=== PATIENT | male | born 1950 | race Caucasian/White ===

== ENCOUNTER 2017-01-24 14:28 | Inpatient (IN) ==
--- NOTE | 2017-01-24 21:04 | Internal Med History&Physical ---
<Eric Reza - Last Filed: 01/25/17 03:18> Date of Encounter: 01/25/17 Time of Encounter: 21:04 Assessment and Plan (1) Hematoma Current visit: No Status: Acute Ultrasound performed at [place] - Complex cystic mass measuring at least 10.5 cm x 10.0 cm x 4.0 cm in the anterior right thigh at the area of concern. There is a suspected fluid- hematocrit level suggestive of hematoma. The mass is not definitely localized to the subcutaneous tissues or musculature. TTP on exam, firm, non-pulsatile Increasing in size to roughly 10cm by 16cm Vascular consulted will followup tomorrow ABIs ordered CT right LE ordered Holding anti-coags - history of coumadin use d/t previous DVT, INR 2.6 today. Bed rest Pain control (2) Anemia associated with acute blood loss Current visit: Yes Status: Acute Hgb 5.5 at [place]. Transfused 2 units PRBCs. Trended up to 7.0 and now down to 6.7 Type and Screen Ordered IVF and 2 more units of PRBCs Serial H&H Vitals signs stable with mild tachy HR 104 - will monitor for improvement with transfusion and IVF replacement See above (3) GERD (gastroesophageal reflux disease) Current visit: Yes Status: Chronic restarted home PPI. Well controlled at this time. Qualifiers: Esophagitis presence: without esophagitis Qualified Code(s): K21.9 - Gastro -esophageal reflux disease without esophagitis (4) HTN (hypertension) Current visit: No Status: Chronic BP 129/80 at this time. Restarting Coreg. Qualifiers: Hypertension type: essential hypertension Qualified Code(s): I10 - Essential (primary) hypertension (5) Lupus Current visit: Yes Status: Chronic Taking Medrol and Plaqueneil. Restarted meds. Qualifiers: Lupus erythematosus form: unspecified Qualified Code(s): L93.0 - Discoid lupus erythematosus (6) CKD (chronic kidney disease) Current visit: No Status: Chronic Cr 1.33. Started IVF @ 125. Rechecking tomorrow. Qualifiers: Chronic kidney disease stage: stage 3 (moderate) Qualified Code(s): N18.3 - Chronic kidney disease, stage 3 (moderate) (7) Constipation Current visit: No Status: Chronic Last known bowel movement 2 days prior Start on bowel regimen Encouraged water intake Qualifiers: Constipation type: unspecified constipation type Qualified Code(s): K59.00 - Constipation, unspecified (8) Hyperkalemia Current visit: Yes Status: Acute K up to 5.3 Given Kayexalate Rechecking tomorrow Internal Medicine - H&P: HPI Chief complaint: anemia, leg pain Admitted From: Hospital to Hospital Transfer Plans for Post Hospital Care: Transfer Inp Rehab Fac History of present illness: Mr. Pichardo is a very pleasant 66 year old male with a past medical history of HLD , HTN, PAD, GERD, CKD, DVT, Lupus, anxiety and depression who presents to the [facility] from [place] with a chief complaint of right leg pain and anemia. He was recently admitted to [facility] for inpatient rehabilitation and starting Friday, he noticed swelling and pain in his right anterior hip region. No ecchymosis. XR hip neg. Ultrasound suggestive of large hematoma. 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 He was subsequently fell on his right side where they conducted the procedure and was after evaluated for possible fracture, he was found to have "internal bleeding" and sent to [facility] for further management. During his stay, they amputated his left big toe and right 5th toe and was sent for rehab in [place] due deconditioning and lack of weight bearing. Labs at [place] demonstrate Hgb 6.7 and Cr 1.33. Hgb previously was 5.5 and was given 2 units PRBC. Vital signs stable. EKG unremarkable. On evaluation, he denies any tobacco or EtOH abuse. He is taking Warfarin for history of DVT but was discontinued prior to transfer. Denies any CP, SOB, lighheadedness, palpitations, hematochezia or melana. We will admit patient to for further workup and management. Past Med Surg Social Fam HX - Past Medical History Medical history: arthritis, DVT, GERD, hyperlipidemia, hypertension, kidney stones, renal disease, other Psychiatric history: anxiety - Past Surgical History Surgical History: other - Social History Smoking Status: Never smoker Smokeless Tobacco Status: No Alcohol use: none Drug use: none - Family History Mother Living Status: Age at : 81 Cause of : Demantia, old age Hx Family Neurologic Disorders: Yes Father Living Status: Age at : 82 Cause of : Respiratory failure Hx Family Cardiac Disorders: Yes (Hypertension) Hx Family Respiratory Disorders: Yes (Aspestis) Internal Medicine - H&P: Meds Acetaminophen [Tylenol] 650 mg PO Q6HR PRN 05/15/16 [History] Ascorbic Acid [C-1000] 1,000 mg PO DAILY 05/15/16 [History] Calcitriol [Rocaltrol] 0.25 mcg PO HS 05/15/16 [History] Cyclobenzaprine [Flexeril] 5 mg PO TID PRN 05/15/16 [History] Ferrous Sulfate [Iron] 325 mg PO BIDWM 05/15/16 [History] Hydroxychloroquine [Plaquenuil] 200 mg PO BID 05/15/16 [History] Metoprolol XL (24 HR) Succ [Toprol XL] 25 mg PO DAILY 05/15/16 [History] OxyCODONE Immed Rel [Roxicodone 5 MG] 5 mg PO Q4H PRN 05/15/16 [History] Paroxetine HCl [Paxil] 20 mg PO DAILY 05/15/16 [History] Sennosides/Docusate Sodium [Senna-S Tablet] 1 tab PO HS 05/15/16 [History] methylPREDNISolone [Medrol] 4 mg PO BID 05/15/16 [History] Aspirin 81 mg PO DAILY 01/17/17 [History] Pantoprazole Sodium [Protonix] 40 mg PO DAILY 01/17/17 [History] 3 Allergy/AdvReac Type Severity Reaction Status Date / Time carvedilol [From Coreg] Allergy Gastrointestinal Verified 01/17/17 01:17 Upset diphenhydramine Allergy Chills Verified 01/17/17 01:17 [From Benadryl] All Systems PM: A 10-system review of systems was performed and is negative for pertinent findings except as documented above in the HPI. - Constitutional Constitutional: no fever(s), no weight loss - Cardiovascular Cardiovascular ROS IM: as per HPI, no chest pain, no dyspnea, no palpitations - Respiratory Respiratory: no hemoptysis - Gastrointestinal Gastrointestinal: constipation, no abdominal pain - Genitourinary Genitourinary ROS male: no dysuria - Musculoskeletal Musculoskeletal ROS IM: arthralgias - Integumentary Integumentary IM: as per HPI - Neurological Neurological ROS: no headache(s) - Psychiatric Psychiatric: anxiety, depression - Constitutional Vitals: Temp Pulse Resp BP Pulse Ox 97.7 F 104 14 129/80 98 01/24/17 18:42 01/24/17 18:42 01/24/17 18:42 01/24/17 18:42 01/24/17 18:42 General appearance: Present: cooperative, A&O X 3, no acute distress - Head Head exam: Present: atraumatic, normocephalic - Eye Eye exam: Present: EOMI, conjuntiva pink, sclera anicteric - ENT ENT exam: Present: mucous membranes dry - Neck Neck exam general surgery: Present: supple, trachea midline - Respiratory Respiratory exam: Present: CTAB. Absent: rales, rhonchi, wheezes - Cardiovascular Cardiovascular exam: Present: RRR, +S1, +S2 - GI/Abdominal GI/Abdominal exam: Present: normal bowel sounds, soft. Absent: tenderness - Rectal Rectal exam: Present: deferred - Extremities Exam Extremities exam: Present: tenderness (right anterior thigh, large hematoma present about right anterior hip 10cm x16cm) - Neurological Exam Neurological exam: Present: alert, oriented X3, no focal deficits - Psychiatric Psychiatric exam: Present: normal affect, normal mood - Skin Skin exam: Present: abrasion (bilateral knees), intact (diffuse chronic ecchymosis about forearms and b/l LE ) Internal Med - H&P Results - Labs CBC & Chem 7: 01/25/17 00:48 01/24/17 22:48 <Odilon Antonio K - Last Filed: 01/25/17 04:59> Date of Encounter: 01/24/17 Internal Medicine - H&P: HPI History of present illness: Mr. Pichardo is a 66 year old male All Systems PM: A 10-system review of systems was performed and is negative for pertinent findings except as documented above in the HPI. - Constitutional Vitals: Temp Pulse Resp BP Pulse Ox 99.5 F 104 16 134/86 98 01/25/17 02:39 01/25/17 02:39 01/25/17 02:39 01/25/17 02:39 01/25/17 02:39 Internal Med - H&P Results - Labs CBC & Chem 7: 12/09/17 00:48 01/24/17 22:48 Labs: Short CBC 01/24/17 01/25/17 Range/Units 22:48 00:48 WBC 9.3 (4.3-11.1) K/mcL Hgb 6.1 L 5.9 L* (12.9-16.9) g/dL Hct 20.1 L 18.6 L (37.5-50.1) % Plt Count 389 (140-400) K/mcL Neutrophils # 7.1 (1.6-8.9) K/mcL BMP 01/24/17 22:48 Sodium 135 L Potassium 5.3 H Chloride 106 Carbon Dioxide 22 BUN 45 H Creatinine 1.60 H Glucose 109 H Calcium 8.3 L - Impressions ITS Impressions Lower Extremity CT 01/24/17 23:12 IMPRESSION: 1. No fracture or malalignment. 2. Large anterior compartment hematoma. Partially imaged is a hematoma in the right iliacus muscle. D/ / Esteban Reyes MD / Esteban Reyes MD Interpreting Provider: Esteban Reyes MD - Attending Attestation I have personally and placing the patient and examined the patient./Dictation / Nurse Practioner findings and plan discussed. Chest clear heart S1 and S2 rate rhythm regular abdomen soft nontender no organomegaly. Right thigh shows hematoma which is quite tender. Hemoglobin has dropped down to 5.9 therefore will give couple of units of PRBC. Vascular surgery consulted.
[2017-01-24] MEDS ORDERED: *HR* Morphine 2 MG/ML SYRINGE IVP PRN (22:01)
[2017-01-24] MEDS ORDERED: Naloxone 0.4 MG/ML INJ IVP PRN (22:01)
[2017-01-24] MEDS ORDERED: 0.9 % Sodium Chloride 1,000 ML IVC SCH (22:15)
[2017-01-24 23:03] LABS: Basophils % 0.2 %; Eosinophils # 0.1 K/mcL (0.0-0.6); Eosinophils % 0.9 %; Hematocrit 20.1 % (37.5-50.1); Hemoglobin 6.1 g/dL (12.9-16.9); Immature Granulocytes % 1.7 % (0-4); Lymphocytes % 10.6 %; Mean Corpuscular HGB Conc 30.3 g/dL (31.6-35.5); Mean Corpuscular Hemoglobin 28.6 pg (28.0-33.3); Mean Corpuscular Volume 94.4 fL (83.0-100.0); Mean Platelet Volume 9.2 fL (9.4-12.4); Monocytes % 10.5 %; Neutrophils # 7.1 K/mcL (1.6-8.9); Nucleated Red Blood Cells 0.4 /100 WBC (0); Platelet Count 389 K/mcL (140-400); Red Blood Count 2.13 M/mcL (4.19-5.50); Red Cell Distribution Width 17.7 % (11.5-14.5); Segmented Neutrophils % 76.1 %
[2017-01-24 23:18] LABS: Calcium 8.3 mg/dL (8.6-10.8); Potassium 5.3 mEq/L (3.5-4.5)
[2017-01-25 01:08] LABS: Hematocrit 18.6 % (37.5-50.1)
[2017-01-25 01:17] LABS: Hemoglobin 5.9 g/dL (12.9-16.9)
[2017-01-25] MEDS ORDERED: 0.9 % Sodium Chloride 500 ML ONE ×2 (01:56→06:01)
[2017-01-25] MEDS ORDERED: Ondansetron 4 MG/2 ML VIAL IVP PRN (03:49)
[2017-01-25] MEDS: Acetaminophen 325 MG TABLET PO PRN ×2 (04:14→17:26)
[2017-01-25] MEDS: methylPREDNISolone 4 MG TABLET PO SCH ×2 (09:09→22:17)
[2017-01-25] MEDS: Metoprolol XL (24 HR) Succ 25 MG TAB.ER.24H PO SCH (09:14)
[2017-01-25] MEDS ORDERED: *HR* HYDROmorphone 2 MG/ML SYRINGE IVP PRN (10:17)
[2017-01-25 10:27] LABS: Calcium 7.8 mg/dL (8.6-10.8)
[2017-01-25 10:29] LABS: Potassium 4.8 mEq/L (3.5-4.5)
[2017-01-25] MEDS ORDERED: 0.9 % Sodium Chloride 250 ML ONE ×2 (10:41→16:25)
[2017-01-25 10:58] LABS: Hematocrit 27.1 % (37.5-50.1)
--- NOTE | 2017-01-25 11:47 | Internal Med Progress Note ---
Date of Encounter: 01/25/17 Time of Encounter: 09:00 - Assessment and plan (1) Pulmonary embolism Current Visit: Yes Status: Acute Assessment and plan: Patient has a history of pulmonary embolism since this April. Probably due to back surgery and immobilization. Patient was on Coumadin since then. - We will hold the Coumadin because of hematoma. - We will consult oncology hematology for further management. Qualifiers: Pulmonary embolism type: other Chronicity: chronic Acute cor pulmonale presence: without acute cor pulmonale Qualified Code(s): I27.82 - Chronic pulmonary embolism (2) DVT prophylaxis Current Visit: Yes Status: Acute Assessment and plan: Patient was on Coumadin. Coumadin is on hold now because of hematoma. No further anticoagulations because of acute hematoma on right thigh. EPCD (3) HTN (hypertension) Current Visit: No Status: Chronic Assessment and plan: Continue home medications Qualifiers: Hypertension type: essential hypertension Qualified Code(s): I10 - Essential (primary) hypertension (4) CKD (chronic kidney disease) Current Visit: No Status: Chronic Assessment and plan: Patient's creatinine level is at about baseline Qualifiers: Chronic kidney disease stage: stage 3 (moderate) Qualified Code(s): N18.3 - Chronic kidney disease, stage 3 (moderate) (5) Anemia Current Visit: No Status: Acute Assessment and plan: Patient has a chronic anemia, probably due to CKD. His baseline hemoglobin level is at around 8.0 Qualifiers: Anemia type: due to chronic kidney disease Chronic kidney disease stage: stage 3 (moderate) Qualified Code(s): N18.3 - Chronic kidney disease, stage 3 (moderate); D63.1 - Anemia in chronic kidney disease; D63.1 - Anemia in chronic kidney disease (6) Hematoma Current Visit: No Status: Acute Assessment and plan: Patient has a recent fall and he is on Coumadin. Right thigh hematoma with pain. Distal pulse is good at this point. We will continue hold Coumadin/ aspirin/Plavix. Give patient 2 units of FFP. Continue pain management. Consult orthopedic, plan for bedside aspiration. (7) Lupus Current Visit: Yes Status: Chronic Assessment and plan: Patient is on chronic steroid use. Will continue home dose at this point. May need stress dose if patient undergoes surgery or have significant disease. Qualifiers: Lupus erythematosus form: unspecified Qualified Code(s): L93.0 - Discoid lupus erythematosus (8) Anemia associated with acute blood loss Current Visit: Yes Status: Acute Assessment and plan: Hemoglobin dropped to 5-6, probably due to large hematoma. Patient denies black stool or coffee ground emesis. - Patient was given 2 units of PRBC transfusion. Hemoglobin reached to 9.0 now. - Continue closely monitor vitals and hemoglobin level. (9) Hyperkalemia Current Visit: Yes Status: Acute Assessment and plan: Improved after Kayexalate. (10) PVD (peripheral vascular disease) Current Visit: Yes Status: Acute Assessment and plan: Patient has hx of PVD. Vascular surgery consult was called. - Time Spent With Patient 25 - 35 minutes - Subjective Interval history: Patient was seen and examined. Complained of right thigh pain, need by mouth and IV pain medications. Vital signs stable. Both side popliteal artery pulse is good on palpation. We will consult vascular surgeon, orthopedic, and oncology for patient's PVD, hematoma, and PE management. - Constitutional Vitals: Temp Pulse Resp BP Pulse Ox 98.6 F 96 14 146/75 100 01/25/17 10:48 01/25/17 10:48 01/25/17 10:48 01/25/17 10:48 01/25/17 10:48 General appearance: Present: cooperative, A&O X 3, no acute distress - Head Head exam: Present: atraumatic, normocephalic - Eye Eye exam: Present: PERRL, conjuntiva pink, sclera anicteric Pupils: Present: PERRL - Neck Neck exam general surgery: Present: supple, trachea midline. Absent: lymphadenopathy - Respiratory Respiratory exam: Present: CTAB. Absent: accessory muscle use, rales, rhonchi, wheezes - Cardiovascular Cardiovascular exam: Present: RRR, +S1, +S2. Absent: diastolic murmur, gallop, rubs, systolic murmur - GI/Abdominal GI/Abdominal exam: Present: normal bowel sounds, soft, no peritoneal signs. Absent: distended, tenderness - Extremities Exam Extremities exam: Present: warm, radial pulses palpable and symmetrical. Absent : calf tenderness, cyanotic, pedal edema Additional comments: Right thigh swelling, hard on touch. Right popliteal pulse is good. - Neurological Exam Neurological exam: Present: CN II-XII intact, oriented X3, no focal deficits. Absent: pronater drift, facial droop, speech deficit - Skin Skin exam: Present: dry, intact Internal Medicine: Result - Labs CBC & Chem 7: 01/25/17 10:40 01/25/17 10:08 Labs: Short CBC 01/24/17 01/25/17 01/25/17 Range/Units 22:48 00:48 10:40 WBC 9.3 (4.3-11.1) K/mcL Hgb 6.1 L 5.9 L* 9.0 L D (12.9-16.9) g/dL Hct 20.1 L 18.6 L 27.1 L (37.5-50.1) % Plt Count 389 (140-400) K/mcL Neutrophils # 7.1 (1.6-8.9) K/mcL BMP 01/24/17 01/25/17 22:48 10:08 Sodium 135 L 137 Potassium 5.3 H 4.8 H Chloride 106 109 Carbon Dioxide 22 18 L BUN 45 H 45 H Creatinine 1.60 H 1.48 H Glucose 109 H 85 Calcium 8.3 L 7.8 L - Impressions Impressions Lower Extremity CT 01/24/17 23:12 IMPRESSION: 1. No fracture or malalignment. 2. Large anterior compartment hematoma. Partially imaged is a hematoma in the right iliacus muscle. D/ / Esteban Reyes MD / Esteban Reyes MD Interpreting Provider: Esteban Reyes MD Consult Discharge Plan - Plan Referrals: Randy Tse MD [Primary Care Provider] -
[2017-01-25] MEDS: *HR* OxyCODONE/APAP 5/325 TABLET PO PRN ×2 (12:00→18:50)
--- NOTE | 2017-01-25 12:01 | Orthopedic Consult Note ---
Date of Encounter: 01/25/17 Time of Encounter: 11:58 Assessment and Plan (1) Thigh hematoma Current Visit: Yes Status: Acute This patient is a 66-year-old male with a large right thigh hematoma with associated pain, particularly with movements. He does not have compartment syndrome. Etiology is likely related to being on warfarin. My recommendation at this point is to reverse the INR. Regarding the hematoma itself treatment options include observation versus aspiration versus surgical drainage. Given the symptomatic nature of the hematoma it would be reasonable to attempt aspiration or even drained surgically. Given his elevated INR and low hemoglobin at this point I am hesitant to recommend surgical decompression for comfort purposes only. I will attempt bedside aspiration. After informed consent was obtained and a timeout to identify the correct patient, correct procedure, the correct side I did use an 18-gauge spinal needle and introduced it into the anterior compartment and attempted to aspirate the hematoma, however I was unable to get more than 2 mL of bloody material. It would be reasonable to consult interventional radiology for placement of a larger drain for the hematoma. Should this not be successful or his INR be successfully reversed and his hemoglobin at a reasonable level we could proceed with surgical drainage of the hematoma. I will follow him clinically with you in the hospital. Qualifiers: Qualified Code(s): S70.11XA - Contusion of right thigh, initial encounter History of Present Illness HPI: Mr. Pichardo is a 66 year old male admitted to the hospitalist for a right thigh hematoma. He was recently admitted to a rehabilitation facility after having his right small toe amputated for infection. During recovery he started to notice right thigh swelling associate it with pain beginning 6 days ago and this has plateaued within the last few days. He is taking Coumadin and has an INR of about 2.6. Orthotics was consulted related to the right thigh hematoma. My evaluation he complains of isolated pain to the right thigh anteriorly associated with movements. He denies any numbness or tingling to the right lower extremity. When he is at rest and not moving the pain is relatively controlled and again is worsened by movements and getting on and off a bed kelly. No new injuries or complaints otherwise. No other associated signs or symptoms or modifying factors. Past Med Surg Social Fam HX - Past Medical History Medical history: arthritis, DVT, GERD, hyperlipidemia, hypertension, kidney stones, renal disease, other Psychiatric history: anxiety - Past Surgical History Surgical History: other - Social History Smoking Status: Never smoker Smokeless Tobacco Status: No Alcohol use: none Drug use: none - Family History Mother Living Status: Age at : 81 Cause of : Demantia, old age Hx Family Neurologic Disorders: Yes Father Living Status: Age at : 82 Cause of : Respiratory failure Hx Family Cardiac Disorders: Yes (Hypertension) Hx Family Respiratory Disorders: Yes (Aspestis) Medications and Allergies Acetaminophen [Tylenol] 650 mg PO Q6HR PRN 05/15/16 [History] Ascorbic Acid [C-1000] 1,000 mg PO DAILY 05/15/16 [History] Calcitriol [Rocaltrol] 0.25 mcg PO HS 05/15/16 [History] Cyclobenzaprine [Flexeril] 5 mg PO TID PRN 05/15/16 [History] Ferrous Sulfate [Iron] 325 mg PO BIDWM 05/15/16 [History] Hydroxychloroquine [Plaquenuil] 200 mg PO BID 05/15/16 [History] Metoprolol XL (24 HR) Succ [Toprol XL] 25 mg PO DAILY 05/15/16 [History] OxyCODONE Immed Rel [Roxicodone 5 MG] 5 mg PO Q4H PRN 05/15/16 [History] Paroxetine HCl [Paxil] 20 mg PO DAILY 05/15/16 [History] Sennosides/Docusate Sodium [Senna-S Tablet] 1 tab PO HS 05/15/16 [History] methylPREDNISolone [Medrol] 4 mg PO BID 05/15/16 [History] Aspirin 81 mg PO DAILY 01/17/17 [History] Pantoprazole Sodium [Protonix] 40 mg PO DAILY 01/17/17 [History] Alendronate Sodium 70 mg PO QWEEK 01/25/17 [History] Celecoxib [Celebrex] 200 mg PO BID 01/25/17 [History] Clopidogrel [Plavix] 75 mg PO DAILY 01/25/17 [History] LORazepam [Ativan] 0.5 mg PO BID 01/25/17 [History] Warfarin [Coumadin] 2 mg PO AD 01/25/17 [History] 3 Allergy/AdvReac Type Severity Reaction Status Date / Time carvedilol [From Coreg] Allergy Gastrointestinal Verified 01/17/17 01:17 Upset diphenhydramine Allergy Chills Verified 01/17/17 01:17 [From Benadryl] All Systems Reviewed: A 10-system review of systems was performed and is negative for pertinent findings except as documented above in the HPI. Physical Exam - Constitutional Vitals: Temp Pulse Resp BP Pulse Ox 98.6 F 96 14 146/75 100 01/25/17 10:48 01/25/17 10:48 01/25/17 10:48 01/25/17 10:48 01/25/17 10:48 CONSTITUTIONAL -Vitals reviewed -The patient is well developed, well nourished, well groomed PSYCHIATRIC -Fully alert and oriented -Pleasant mood RIGHT UPPER EXTREMITY Inspection shows right anterior thigh swelling compared to the contralateral side Tenderness over the area of focal anterior swelling No overlying skin changes or redness or concern for infection I can gently passively range the knee with flexion and extension without significant worsening of his pain. The thigh is otherwise soft. He can dorsiflex and plantarflex the ankle and toes and the foot is sensate and well-perfused The incision on the lateral aspect of the foot is healing well. Diagnostic Imaging: I did personally review and interpret the CT scan of the right thigh which does show a large anterior thigh hematoma Results - Labs Result Diagrams: 01/25/17 10:40 01/25/17 10:08 Labs: Abnormal lab results RBC 2.13 M/mcL (4.19-5.50) L 01/24/17 22:48 Hgb 9.0 g/dL (12.9-16.9) L D 01/25/17 10:40 Hct 27.1 % (37.5-50.1) L 01/25/17 10:40 MCHC 30.3 g/dL (31.6-35.5) L 01/24/17 22:48 RDW 17.7 % (11.5-14.5) H 01/24/17 22:48 MPV 9.2 fL (9.4-12.4) L 01/24/17 22:48 Nucleated RBCs/100 WBC 0.4 /100 WBC (0) H 01/24/17 22:48 Potassium 4.8 mEq/L (3.5-4.5) H 01/25/17 10:08 Carbon Dioxide 18 mEq/L (19-29) L 01/25/17 10:08 BUN 45 mg/dL (8-26) H 01/25/17 10:08 Creatinine 1.48 mg/dL (0.72-1.25) H 01/25/17 10:08 Est GFR ( Amer) 58 (> 60) L 01/25/17 10:08 Est GFR (Non-Af Amer) 48 (> 60) L 01/25/17 10:08 BUN/Creatinine Ratio 30 (6-26) H 01/25/17 10:08 Calcium 7.8 mg/dL (8.6-10.8) L 01/25/17 10:08 H & H 01/24/17 01/25/17 01/25/17 Range/Units 22:48 00:48 10:40 Hgb 6.1 L 5.9 L* 9.0 L D (12.9-16.9) g/dL Hct 20.1 L 18.6 L 27.1 L (37.5-50.1) % All other labs normal. Consult Discharge Plan - Plan Referrals: Randy Tse MD [Primary Care Provider] -
--- NOTE | 2017-01-25 14:07 | Vascular/Endovasc Consult Note ---
Date of Encounter: 01/25/17 Time of Encounter: 14:03 Assessment and Plan (1) Anemia associated with acute blood loss Current Visit: Yes Status: Acute Transfusion and correction of coagulation profiles as per medical service. (2) PVD (peripheral vascular disease) Current Visit: Yes Status: Chronic Patient has chronic long-standing lower extremity vascular disease. This appears to be in the tibial circulation. By history he is status post left lower extremity intervention. Due to ongoing issues with bleeding and other medical concerns further vascular intervention at this time is inappropriate. Due to the wounds on the feet I would recommend podiatry consultation for evaluation and follow-up for wound healing. Patient will also require noninvasive testing once his medical status is improved and source of anemia clarified. He is not a candidate for intervention as this would require intraprocedure procedure anticoagulation and post procedure antiplatelet therapy for a minimum of 90 days. (3) Thigh hematoma Current Visit: Yes Status: Acute Patient has been seen by orthopedic surgery with attempted percutaneous aspiration and decompression. At this time patient does not have a compartment syndrome or have a limb threatening process. It would be reasonable to ask interventional radiology to attempt to drain this hematoma. I agree with correction of coagulation factors and transfusion. I do not recommend open surgical intervention at this time. I have reviewed the CT scan and do not see any obvious connection to the hematoma from the right femoral arterial system. Of note however the CT scan was performed without IV contrast due to renal considerations. As I do not recommend angiography for vascular surgery intervention the vascular surgery service will remain available if there are any further questions or concerns regarding this patient's care. Qualifiers: Encounter type: initial encounter Laterality: right Qualified Code(s): S70.11XA - Contusion of right thigh, initial encounter - History of Present Illness Consult date: 01/25/17 Consult reason: Right thigh hematoma Chief complaint: Right thigh hematoma History of present illness: Mr. Pichardo is a 66 year old male Who was admitted on transfer from [place] last night because of a right thigh hematoma and right thigh pain. The patient's history is rather complex and difficult to piece together. As best I can determine his issues began with chronic foot until infections. He was found to have some degree of vascular insufficiency though I do not have the angiogram report or noninvasive testing at the time of this dictation. He went on to have a angiogram at [facility] with apparent left lower extremity endovascular intervention via a right femoral puncture. The patient denies any complications associated with this procedure. He believes that CO2 was used as a contrast medium for some of this procedure if not all of the procedure. Following this he was judged to require amputation of the right fifth and the left first toe. He was then sent to the [facility] and had this procedure performed. From there he went to [place] for rehabilitation. Patient states that he did have a fall somewhere around [facility]. There was no immediate swelling but he noted about one week ago there were some irritation in the anterior thigh and then that evening and following day he noted a swelling. The swelling then slowly increased in size. He had more symptoms and was found to be significantly anemic and was transferred yesterday. Of note the patient has had ongoing anemia and has received multiple transfusions over the past few weeks. It is unclear at the time of this dictation as to the etiology of the patient's anemia. It should be noted that the patient was taking Coumadin on his physician 's recommendation. Again this is somewhat unclear but apparently he had had a right lower extremity DVT many years ago. Then in April of this year he had undergone spine surgery and a pulmonary embolus was discovered according to the patient. Again the details of this are not available to time of this dictation. He was then placed on anticoagulation and was told by his family physician that he would be on lifelong anticoagulation. Due to the anemia and the hematoma of course all anticoagulants and antiplatelets have been stopped. Other complicating factors for this patient include lupus with long-term steroid use and hypertension. Past Med Surg Social Fam HX - Past Medical History Medical history: arthritis, DVT, GERD, hyperlipidemia, hypertension, kidney stones, renal disease, other Psychiatric history: anxiety - Past Surgical History Surgical History: angioplasty/stent (Left lower extremity interventions performed in December 2016 at [place]), orthopedic, other (Spine surgery performed in April 2016) - Social History Smoking Status: Never smoker Smokeless Tobacco Status: No Alcohol use: none Drug use: none - Family History Mother Living Status: Age at : 81 Cause of : Demantia, old age Hx Family Neurologic Disorders: Yes Father Living Status: Age at : 82 Cause of : Respiratory failure Hx Family Cardiac Disorders: Yes (Hypertension) Hx Family Respiratory Disorders: Yes (Aspestis) Medications and Allergies Acetaminophen [Tylenol] 650 mg PO Q6HR PRN 05/15/16 [History] Ascorbic Acid [C-1000] 1,000 mg PO DAILY 05/15/16 [History] Calcitriol [Rocaltrol] 0.25 mcg PO HS 05/15/16 [History] Cyclobenzaprine [Flexeril] 5 mg PO TID PRN 05/15/16 [History] Ferrous Sulfate [Iron] 325 mg PO BIDWM 05/15/16 [History] Hydroxychloroquine [Plaquenuil] 200 mg PO BID 05/15/16 [History] Metoprolol XL (24 HR) Succ [Toprol XL] 25 mg PO DAILY 05/15/16 [History] OxyCODONE Immed Rel [Roxicodone 5 MG] 5 mg PO Q4H PRN 05/15/16 [History] Paroxetine HCl [Paxil] 20 mg PO DAILY 05/15/16 [History] Sennosides/Docusate Sodium [Senna-S Tablet] 1 tab PO HS 05/15/16 [History] methylPREDNISolone [Medrol] 4 mg PO BID 05/15/16 [History] Aspirin 81 mg PO DAILY 01/17/17 [History] Pantoprazole Sodium [Protonix] 40 mg PO DAILY 01/17/17 [History] Alendronate Sodium 70 mg PO QWEEK 01/25/17 [History] Celecoxib [Celebrex] 200 mg PO BID 01/25/17 [History] Clopidogrel [Plavix] 75 mg PO DAILY 01/25/17 [History] LORazepam [Ativan] 0.5 mg PO BID 01/25/17 [History] Warfarin [Coumadin] 2 mg PO AD 01/25/17 [History] 3 Allergy/AdvReac Type Severity Reaction Status Date / Time carvedilol [From Coreg] Allergy Gastrointestinal Verified 01/17/17 01:17 Upset diphenhydramine Allergy Chills Verified 01/17/17 01:17 [From Benadryl] All Systems Review: A 10-system review of systems was performed and is negative for pertinent findings except as documented above in the HPI. Exam Vital Signs, Last 4 Hours Temp Pulse Resp BP Pulse Ox 01/25/17 13:30 98.6 F 96 18 147/77 100 01/25/17 10:48 98.6 F 96 14 146/75 100 General: Present: Conversant, No Apparent Distress HEENT: Present: Atraumatic, Normocephaly, Trachea midline Neck: Absent: JVD Neuro: Present: Alert and responsive, Cranial nerves grossly intact, Motor nerves grossly intact, Sensory nerves grossly intact Abdomen: Present: Soft, Non-tender Vascular: Present: Capillary refill delayed, Pulse, absent (No palpable dorsalis pedis or posterior tibial pulse at the ankle), Pulse, normal (Palpable bilateral femoral and popliteal pulses), Other (Chronic discoloration of the forearms and lower extremities from what appears to be ecchymoses) Skin: Present: Wound/ulcer(s) (Patient is status post right fifth metatarsal amputation and status post left first toe amputation. He also has a hammertoe of the left second toe.) Musculoskeletal: Present: Other Consult Discharge Plan - Plan Referrals: Randy Tse MD [Primary Care Provider] -
--- NOTE | 2017-01-25 15:11 | Oncology Inp Consult Note ---
Date of Encounter: 01/25/17 Time of Encounter: 15:09 Assessment and Plan (1) Anemia Status: Acute Assessment and plan: His main and dictating back to April 2016 hemoglobin 9. I do not have previous values. Part of the anemia could be secondary to lupus. I will do a complete anemia workup. Current acute anemia secondary to bleeding and right thigh hematoma May need colonoscopy in the future as well and he was Hemoccult stool positive May 2069 Qualifiers: Anemia type: due to chronic kidney disease Chronic kidney disease stage: stage 3 (moderate) Qualified Code(s): N18.3 - Chronic kidney disease, stage 3 (moderate); D63.1 - Anemia in chronic kidney disease; D63.1 - Anemia in chronic kidney disease (2) Pulmonary embolism Status: Acute Assessment and plan: History of pulmonary embolism April 2016. Provoked after back surgery. His risk factor include lupus. Do a hypercoagulable workup Also check d-dimer. If d-dimer is elevated may consider CT angiogram chest to look for resolution of PE. May need to have hydration because of his renal insufficiency At this time I will stop anticoagulation. INR was only mildly elevated at 2.6 but he had a fall which caused a hematoma. Apparently he was also on Lovenox for the by history. Elequis is been approved for creatinine less than 1.5 at standard dose 5 mg 3 times a day. But if he does not have major clot I would consider 2.5 mg by mouth twice a day as an outpatient to minimize future venous thromboembolism. Qualifiers: Pulmonary embolism type: other Chronicity: chronic Acute cor pulmonale presence: without acute cor pulmonale Qualified Code(s): I27.82 - Chronic pulmonary embolism (3) Thigh hematoma Status: Acute Assessment and plan: Aggravated by fall. He was on Coumadin at that time and possibly Lovenox. He is getting plasma transfusions. He had blood transfusion and current hemoglobin 9. Orthopedics involved. We will hold anticoagulation until his hematoma improves Had a long discussion with him. He likes to get off all anticoagulation the future. But given his risk factors may need some anticoagulation in the future. Would Would discuss this further as an outpatient Qualifiers: Encounter type: initial encounter Laterality: right Qualified Code(s): S70.11XA - Contusion of right thigh, initial encounter - Data of Consult Requesting Physician: Gene Baker MD Primary Care Provider: Randy Tse MD - Consult Narrative Reason for consult: History of PE on anticoagulation. Right thigh hematoma History of present illness: Mr. Pichardo is a 66 year old male transferred from peripheral hospital with right thigh hematoma His presentation is complex and I will try to summarize it He had 2 back surgeries likely lumbar laminectomies on April 2016. He was diagnosed with pulmonary embolus some shortly after that during that hospitalization. Likely provoked from the surgery. He was discharged home on Coumadin. His INRs fluctuate the highest was around 4.5. Most of the time it has been around 2 or less. About 3 weeks ago around mid December 2016 he had a vascular procedure with stenting for peripheral arterial disease in the left lower extremity. He was told he had some arterial blockage in the right side but no intervention done. Just prior to that procedure he twisted his right knee and had a fall. He noticed swelling and hematoma right thigh which was present during the above procedure. But subsequently got worse. He also was given apparently Lovenox and I am not sure he received both Lovenox and Coumadin can currently are not He also have to have amputation of some of the toes in the right lower extremity which she claims is due to infection from rubbing against each other. Hemoglobin dropped to 5.5 in January 2017 and he received 2 units of packed RBC outside hospital in another 2 units here. Current hemoglobin 9. He was also Hemoccult tested positive the stools May 2016. He claims he had colonoscopy in past She denied diabetes. He has not smoked in more than 20 years. He has SLE and he follows up with the rheumatology. He is taking the Actonel and Celebrex and steroids as needed. His chronic kidney disease with creatinine around 1.5 or slightly below. Likely renal insufficiency secondary to lupus He has handled IV contrast fairly well in the past including the recent vascular procedures mentioned He was evaluated by Dr. Denny vascular surgery and no acute intervention recommended He is also evaluated by orthopedic. Closest aspiration of the hematoma attempted Currently he is off all anticoagulation Medical problems He denied previous history of blood clots prior to his pulmonary embolism around April 2016. He denied any DVT at that time and no family history of blood clots Past Med Surg Social Fam HX - Past Medical History Medical history: arthritis, DVT, GERD, hyperlipidemia, hypertension, kidney stones, renal disease, other Psychiatric history: anxiety - Past Surgical History Surgical History: angioplasty/stent (Left lower extremity interventions performed in December 2016 at [place]), orthopedic, other (Spine surgery performed in April 2016) - Social History Smoking Status: Never smoker Smokeless Tobacco Status: No Alcohol use: none Drug use: none - Family History Mother Living Status: Age at : 81 Cause of : Demantia, old age Hx Family Neurologic Disorders: Yes Father Living Status: Age at : 82 Cause of : Respiratory failure Hx Family Cardiac Disorders: Yes (Hypertension) Hx Family Respiratory Disorders: Yes (Aspestis) Medications and Allergies Acetaminophen [Tylenol] 650 mg PO Q6HR PRN 05/15/16 [History] Ascorbic Acid [C-1000] 1,000 mg PO DAILY 05/15/16 [History] Calcitriol [Rocaltrol] 0.25 mcg PO HS 05/15/16 [History] Cyclobenzaprine [Flexeril] 5 mg PO TID PRN 05/15/16 [History] Ferrous Sulfate [Iron] 325 mg PO BIDWM 05/15/16 [History] Hydroxychloroquine [Plaquenuil] 200 mg PO BID 05/15/16 [History] Metoprolol XL (24 HR) Succ [Toprol XL] 25 mg PO DAILY 05/15/16 [History] OxyCODONE Immed Rel [Roxicodone 5 MG] 5 mg PO Q4H PRN 05/15/16 [History] Paroxetine HCl [Paxil] 20 mg PO DAILY 05/15/16 [History] Sennosides/Docusate Sodium [Senna-S Tablet] 1 tab PO HS 05/15/16 [History] methylPREDNISolone [Medrol] 4 mg PO BID 05/15/16 [History] Aspirin 81 mg PO DAILY 01/17/17 [History] Pantoprazole Sodium [Protonix] 40 mg PO DAILY 01/17/17 [History] Alendronate Sodium 70 mg PO QWEEK 01/25/17 [History] Celecoxib [Celebrex] 200 mg PO BID 01/25/17 [History] Clopidogrel [Plavix] 75 mg PO DAILY 01/25/17 [History] LORazepam [Ativan] 0.5 mg PO BID 01/25/17 [History] Warfarin [Coumadin] 2 mg PO AD 01/25/17 [History] 3 Allergy/AdvReac Type Severity Reaction Status Date / Time carvedilol [From Coreg] Allergy Gastrointestinal Verified 01/17/17 01:17 Upset diphenhydramine Allergy Chills Verified 01/17/17 01:17 [From Benadryl] Review of systems: Some cramps in the right leg. No chest pain or shortness of breath. No fever chills. Oncology - Exam - Constitutional Vitals: Temp Pulse Resp BP Pulse Ox 98.5 F 96 18 148/96 100 01/25/17 13:51 01/25/17 13:30 01/25/17 13:51 01/25/17 13:51 01/25/17 13:51 Exam: Conscious alert and oriented Heart S1-S2 regular rate and rhythm Lungs clear both sites good air entry Abdomen soft also is present not tender Seen is conscious alert and oriented. No motor or sensory deficit. Gait not tested Obvious swelling in the right thigh and closest aspiration attempted by orthopedics Oncology - Results Labs: Short CBC 01/24/17 01/25/17 01/25/17 Range/Units 22:48 00:48 10:40 WBC 9.3 (4.3-11.1) K/mcL Hgb 6.1 L 5.9 L* 9.0 L D (12.9-16.9) g/dL Hct 20.1 L 18.6 L 27.1 L (37.5-50.1) % Plt Count 389 (140-400) K/mcL Neutrophils # 7.1 (1.6-8.9) K/mcL BMP 01/24/17 01/25/17 22:48 10:08 Sodium 135 L 137 Potassium 5.3 H 4.8 H Chloride 106 109 Carbon Dioxide 22 18 L BUN 45 H 45 H Creatinine 1.60 H 1.48 H Glucose 109 H 85 Calcium 8.3 L 7.8 L Consult Discharge Plan - Plan Referrals: Randy Tse MD [Primary Care Provider] -
[2017-01-25 20:13] LABS: Folate 12.7 ng/mL (7.0-31.4)
[2017-01-25 20:34] LABS: Thyroid Stimulating Hormone 2.386 mcIU/mL (0.350-4.840)
[2017-01-25 21:53] LABS: Fibrinogen 553 mg/dL (169-393)
[2017-01-25 22:07] LABS: D-Dimer 1116 ng/mLFEU (0-500)
[2017-01-25] MEDS: *HR* LORazepam 0.5 MG TABLET PO SCH (22:17)
[2017-01-26 03:16] LABS: Eosinophils % 0.8 %; Hematocrit 21.9 % (37.5-50.1); Immature Granulocytes % 2.2 % (0-4); Lymphocytes # 0.4 K/mcL (0.6-4.6); Mean Corpuscular HGB Conc 31.5 g/dL (31.6-35.5); Mean Corpuscular Hemoglobin 28.6 pg (28.0-33.3); Mean Corpuscular Volume 90.9 fL (83.0-100.0); Mean Platelet Volume 9.2 fL (9.4-12.4); Monocytes # 0.5 K/mcL (0.0-1.3); Monocytes % 9.2 %; Nucleated Red Blood Cells 0.4 /100 WBC (0); Platelet Count 271 K/mcL (140-400); Red Blood Count 2.41 M/mcL (4.19-5.50); Red Cell Distribution Width 18.3 % (11.5-14.5); Segmented Neutrophils % 79.8 %
[2017-01-26 03:18] LABS: INR 1.8; Prothrombin Time 19.7 Seconds (9.4-12.1)
[2017-01-26 03:24] LABS: Hemoglobin 6.9 g/dL (12.9-16.9)
[2017-01-26 03:32] LABS: BUN/Creatinine Ratio 30 (6-26); Blood Urea Nitrogen 38 mg/dL (8-26); Calcium 7.9 mg/dL (8.6-10.8); Carbon Dioxide 23 mEq/L (19-29); Chloride 108 mEq/L (98-109); Glucose 101 mg/dL (70-99); Osmolality,Calculated 295 (280-300); Potassium 4.3 mEq/L (3.5-4.5); Sodium 138 mEq/L (136-145); eGFR For African Americans > 60 (> 60); eGFR For Non-African Americans 57 (> 60)
[2017-01-26] MEDS ORDERED: 0.9 % Sodium Chloride 250 ML ONE ×2 (08:38→13:24)
[2017-01-26] MEDS: methylPREDNISolone 4 MG TABLET PO SCH ×2 (08:44→20:18)
[2017-01-26] MEDS: Metoprolol XL (24 HR) Succ 25 MG TAB.ER.24H PO SCH (08:44)
[2017-01-26] MEDS: *HR* LORazepam 0.5 MG TABLET PO SCH ×2 (08:44→20:18)
[2017-01-26] MEDS: Ascorbic Acid 500 MG TABLET PO SCH (08:45)
--- NOTE | 2017-01-26 08:51 | Orthopedics Progress Note ---
Date of Encounter: 01/26/17 Time of Encounter: 08:49 - Assessment and Plan (1) Thigh hematoma Current Visit: Yes Status: Acute Qualifiers: Encounter type: initial encounter Laterality: right Qualified Code(s): S70.11XA - Contusion of right thigh, initial encounter Subjective Interval history: S: The patient feels better this morning. Pain to the right thigh. O: Afebrile and the vital signs are stable though he is tachycardic Right thigh with swelling similar to yesterday Mild bloody drainage over the aspiration site however this has stopped Mild tenderness to palpation over the hematoma No pain with passive knee motion He can grossly dorsiflex and plantar flex ankle and toes and the foot is sensate and well-perfused The foot wound is healing nicely. A: Right thigh hematoma Significant anemia P: The patient is improving regarding the right thigh pain My recommendation at this point is continued observation of the right thigh without surgical management, particularly with his significantly low hemoglobin Physical therapy and occupational therapy when able Right foot per the primary team. Objective Vital signs: Vital Signs Temp Pulse Resp BP Pulse Ox 01/26/17 07:56 98.3 F 110 16 151/84 100 01/26/17 03:42 98.2 F 99 14 144/72 98 01/26/17 00:15 98.5 F 80 16 144/87 92 01/25/17 19:35 98.0 F 102 16 139/80 93 01/25/17 18:48 98.5 F 102 20 156/82 99 01/25/17 17:20 99.2 F 103 18 149/85 01/25/17 17:05 98.2 F 99 18 150/67 98 01/25/17 16:20 98.2 F 99 18 150/67 98 01/25/17 13:51 98.5 F 18 148/96 100 01/25/17 13:30 98.6 F 96 18 147/77 100 01/25/17 10:48 98.6 F 96 14 146/75 100 Intake and Output 01/25/17 01/26/17 01/26/17 23:59 07:59 15:59 Intake Total 577 / 577 0 / 0 Output Total 0 / 0 300 / 300 Balance 577 / 577 -300 / -300 Intake: Oral 0 / 0 0 / 0 Blood Product 577 / 577 Plasma Unit [id number] 327 / 327 Plasma Unit [id number] 250 / 250 Output: Urine 0 / 0 300 / 300 Other: Meal Dinner Percent of Meal Consumed 0% # Voids 1 - Labs CBC & BMP: 01/26/17 02:53 01/26/17 02:53 Labs: Abnormal lab results RBC 2.41 M/mcL (4.19-5.50) L 01/26/17 02:53 Hgb 6.9 g/dL (12.9-16.9) L D 01/26/17 02:53 Hct 21.9 % (37.5-50.1) L 01/26/17 02:53 MCHC 31.5 g/dL (31.6-35.5) L 01/26/17 02:53 RDW 18.3 % (11.5-14.5) H 01/26/17 02:53 MPV 9.2 fL (9.4-12.4) L 01/26/17 02:53 Lymphocytes # 0.4 K/mcL (0.6-4.6) L 01/26/17 02:53 Nucleated RBCs/100 WBC 0.4 /100 WBC (0) H 01/26/17 02:53 PT 19.7 Seconds (9.4-12.1) H 01/26/17 02:53 Fibrinogen 553 mg/dL (169-393) H 01/25/17 21:19 D-Dimer 1116 ng/mLFEU (0-500) H 01/25/17 21:19 BUN 38 mg/dL (8-26) H 01/26/17 02:53 Creatinine 1.27 mg/dL (0.72-1.25) H 01/26/17 02:53 Est GFR (Non-Af Amer) 57 (> 60) L 01/26/17 02:53 BUN/Creatinine Ratio 30 (6-26) H 01/26/17 02:53 Glucose 101 mg/dL (70-99) H 01/26/17 02:53 Calcium 7.9 mg/dL (8.6-10.8) L 01/26/17 02:53 Iron 23 mcg/dL (65-175) L 01/24/17 22:48 % Saturation 10 % (20-55) L 01/24/17 22:48 Transferrin 164 mg/dL (174-364) L 01/24/17 22:48 Ferritin 1033 ng/ml (22-275) H 01/24/17 22:48 Lactate Dehydrogenase 344 Units/L (159-327) H 01/24/17 22:48 Vitamin B12 852 pg/mL (213-816) H 01/24/17 22:48 - VTE Documentation of Mechanical Device: Intermittent pneumatic compression device Consult Discharge Plan - Plan Referrals: Randy Tse MD [Primary Care Provider] -
[2017-01-26 09:39] LABS: Hemoglobin 7.1 g/dL (12.9-16.9)
[2017-01-26] MEDS: *HR* OxyCODONE/APAP 5/325 TABLET PO PRN (12:47)
--- NOTE | 2017-01-26 14:58 | Internal Med Progress Note ---
Date of Encounter: 01/26/17 Time of Encounter: 09:00 - Assessment and plan (1) Pulmonary embolism Current Visit: Yes Status: Acute Assessment and plan: Patient has a history of pulmonary embolism since this April. Probably due to back surgery and immobilization. Patient was on Coumadin since then. - We will hold the Coumadin because of hematoma. - We will consult oncology hematology for further management. - FFP 2 units transfusion given, INR 1.8 today Qualifiers: Pulmonary embolism type: other Chronicity: chronic Acute cor pulmonale presence: without acute cor pulmonale Qualified Code(s): I27.82 - Chronic pulmonary embolism (2) DVT prophylaxis Current Visit: Yes Status: Acute Assessment and plan: Patient was on Coumadin. Coumadin is on hold now because of hematoma. No further anticoagulations because of acute hematoma on right thigh. EPCD (3) HTN (hypertension) Current Visit: No Status: Chronic Assessment and plan: Continue home medications Qualifiers: Hypertension type: essential hypertension Qualified Code(s): I10 - Essential (primary) hypertension (4) CKD (chronic kidney disease) Current Visit: No Status: Chronic Assessment and plan: Patient's creatinine level is at about baseline Qualifiers: Chronic kidney disease stage: stage 3 (moderate) Qualified Code(s): N18.3 - Chronic kidney disease, stage 3 (moderate) (5) Anemia Current Visit: No Status: Acute Assessment and plan: Patient has a chronic anemia, probably due to CKD/Lupus. His baseline hemoglobin level is at around 8.0. Oncology input appreciated. Qualifiers: Anemia type: due to chronic kidney disease Chronic kidney disease stage: stage 3 (moderate) Qualified Code(s): N18.3 - Chronic kidney disease, stage 3 (moderate); D63.1 - Anemia in chronic kidney disease; D63.1 - Anemia in chronic kidney disease (6) Hematoma Current Visit: No Status: Acute Assessment and plan: Patient has a recent fall and he is on Coumadin. Right thigh hematoma with pain. Distal pulse is good at this point. We will continue hold Coumadin/ aspirin/Plavix. Two units of FFP were given. Continue pain management. Failed a bedside aspiration, plan for US guided aspiration by interventional radiology tomorrow. (7) Lupus Current Visit: Yes Status: Chronic Assessment and plan: Patient is on chronic steroid use. Will continue home dose at this point. May need stress dose if patient undergoes surgery or have significant disease. Qualifiers: Lupus erythematosus form: unspecified Qualified Code(s): L93.0 - Discoid lupus erythematosus (8) Anemia associated with acute blood loss Current Visit: Yes Status: Acute Assessment and plan: Hemoglobin dropped to 5-6, probably due to large hematoma. Patient denies black stool or coffee ground emesis. - Hgb 7.1, will give another two units of PRBC today. - Continue closely monitor vitals and hemoglobin level. (9) Hyperkalemia Current Visit: Yes Status: Acute Assessment and plan: Improved after Kayexalate. (10) PVD (peripheral vascular disease) Current Visit: Yes Status: Chronic Assessment and plan: Patient has hx of PVD. Vascular surgery consult appreciated. No procedure at this point - Time Spent With Patient 25 - 35 minutes - Subjective Interval history: Patient was seen and examined. Complained of right thigh pain, Pain is less. Vital signs stable. Both side popliteal artery pulse remains good on palpation. Orthopedic, vascular, and oncology consult appreciated. Patient still has low hemoglobin, will give transfusion today. - Constitutional Vitals: Temp Pulse Resp BP Pulse Ox 99.1 F 98 18 149/79 97 01/26/17 14:20 01/26/17 14:20 01/26/17 14:20 01/26/17 14:20 01/26/17 14:20 General appearance: Present: cooperative, A&O X 3, no acute distress - Head Head exam: Present: atraumatic, normocephalic - Eye Eye exam: Present: PERRL, conjuntiva pink, sclera anicteric Pupils: Present: PERRL - Neck Neck exam general surgery: Present: supple, trachea midline. Absent: lymphadenopathy - Respiratory Respiratory exam: Present: CTAB. Absent: accessory muscle use, rales, rhonchi, wheezes - Cardiovascular Cardiovascular exam: Present: RRR, +S1, +S2. Absent: diastolic murmur, gallop, rubs, systolic murmur - GI/Abdominal GI/Abdominal exam: Present: normal bowel sounds, soft, no peritoneal signs. Absent: distended, tenderness - Extremities Exam Extremities exam: Present: warm, radial pulses palpable and symmetrical. Absent : calf tenderness, cyanotic, pedal edema Additional comments: Right thigh swelling with tenderness. Right popliteal pulse palpitable. - Neurological Exam Neurological exam: Present: CN II-XII intact, oriented X3, no focal deficits. Absent: pronater drift, facial droop, speech deficit - Skin Skin exam: Present: dry, intact Internal Medicine: Result - Labs CBC & Chem 7: 01/26/17 09:31 01/26/17 02:53 Labs: Short CBC 01/26/17 01/26/17 Range/Units 02:53 09:31 WBC 5.0 (4.3-11.1) K/mcL Hgb 6.9 L D 7.1 L (12.9-16.9) g/dL Hct 21.9 L 22.0 L (37.5-50.1) % Plt Count 271 (140-400) K/mcL Neutrophils # 4.0 (1.6-8.9) K/mcL BMP 01/26/17 02:53 Sodium 138 Potassium 4.3 Chloride 108 Carbon Dioxide 23 BUN 38 H Creatinine 1.27 H Glucose 101 H Calcium 7.9 L - ABG Interpretation ABG results: PT/INR, D-dimer PT 19.7 Seconds (9.4-12.1) H 01/26/17 02:53 D-Dimer 1116 ng/mLFEU (0-500) H 01/25/17 21:19 - VTE Documentation of Mechanical Device: Intermittent pneumatic compression device Consult Discharge Plan - Plan Referrals: Randy Tse MD [Primary Care Provider] -
[2017-01-27 03:59] LABS: Basophils % 0.4 %; Eosinophils # 0.1 K/mcL (0.0-0.6); Hematocrit 27.7 % (37.5-50.1); Lymphocytes # 0.5 K/mcL (0.6-4.6); Lymphocytes % 8.9 %; Mean Corpuscular HGB Conc 32.5 g/dL (31.6-35.5); Mean Corpuscular Hemoglobin 29.1 pg (28.0-33.3); Mean Corpuscular Volume 89.6 fL (83.0-100.0); Mean Platelet Volume 9.1 fL (9.4-12.4); Monocytes # 0.5 K/mcL (0.0-1.3); Monocytes % 9.3 %; Neutrophils # 3.8 K/mcL (1.6-8.9); Nucleated Red Blood Cells 0.4 /100 WBC (0); Platelet Count 262 K/mcL (140-400); Red Blood Count 3.09 M/mcL (4.19-5.50); Red Cell Distribution Width 18.2 % (11.5-14.5); Segmented Neutrophils % 75.4 %
[2017-01-27 04:14] LABS: BUN/Creatinine Ratio 29 (6-26); Blood Urea Nitrogen 31 mg/dL (8-26); Calcium 7.5 mg/dL (8.6-10.8); Carbon Dioxide 23 mEq/L (19-29); Chloride 108 mEq/L (98-109); Glucose 91 mg/dL (70-99); Osmolality,Calculated 294 (280-300); Potassium 4.4 mEq/L (3.5-4.5); Sodium 139 mEq/L (136-145); eGFR For African Americans > 60 (> 60); eGFR For Non-African Americans > 60 (> 60)
[2017-01-27] MEDS: Acetaminophen 325 MG TABLET PO PRN (04:57)
[2017-01-27] MEDS: Metoprolol XL (24 HR) Succ 25 MG TAB.ER.24H PO SCH (07:41)
[2017-01-27] MEDS: *HR* LORazepam 0.5 MG TABLET PO SCH ×2 (07:41→21:03)
[2017-01-27] MEDS: *HR* OxyCODONE/APAP 5/325 TABLET PO PRN ×4 (07:41→23:22)
[2017-01-27] MEDS: Ascorbic Acid 500 MG TABLET PO SCH (07:41)
[2017-01-27] MEDS: methylPREDNISolone 4 MG TABLET PO SCH ×2 (07:41→21:03)
--- NOTE | 2017-01-27 08:15 | IR Consult Note ---
Date of Encounter: 01/27/17 Time of Encounter: 08:00 Assessment and Plan (1) Hematoma Current Visit: No Status: Acute Reviewed CT scan, large right thigh hematoma. Most of the hematoma is solid with little fluid component. IR drainage would add very little given consistency of hematoma. Recommend follow-up, should hematoma liquefy then can consider drainage. Physicians: Gene Baker MD Consult Comment: Thank you for the consult. Call [facility] with questions or concerns. Past Med Surg Social Fam HX - Past Medical History Medical history: arthritis, DVT, GERD, hyperlipidemia, hypertension, kidney stones, renal disease, other Psychiatric history: anxiety - Past Surgical History Surgical History: angioplasty/stent (Left lower extremity interventions performed in December 2016 at [facility]), orthopedic, other (Spine surgery performed in April 2016) - Social History Smoking Status: Never smoker Smokeless Tobacco Status: No Alcohol use: none Drug use: none - Family History Mother Living Status: Age at : 81 Cause of : Demantia, old age Hx Family Neurologic Disorders: Yes Father Living Status: Age at : 82 Cause of : Respiratory failure Hx Family Cardiac Disorders: Yes (Hypertension) Hx Family Respiratory Disorders: Yes (Aspestis) Medications and Allergies Acetaminophen [Tylenol] 650 mg PO Q6HR PRN 05/15/16 [History] Ascorbic Acid [C-1000] 1,000 mg PO DAILY 05/15/16 [History] Calcitriol [Rocaltrol] 0.25 mcg PO HS 05/15/16 [History] Cyclobenzaprine [Flexeril] 5 mg PO TID PRN 05/15/16 [History] Ferrous Sulfate [Iron] 325 mg PO BIDWM 05/15/16 [History] Hydroxychloroquine [Plaquenuil] 200 mg PO BID 05/15/16 [History] Metoprolol XL (24 HR) Succ [Toprol XL] 25 mg PO DAILY 05/15/16 [History] OxyCODONE Immed Rel [Roxicodone 5 MG] 5 mg PO Q4H PRN 05/15/16 [History] Paroxetine HCl [Paxil] 20 mg PO DAILY 05/15/16 [History] Sennosides/Docusate Sodium [Senna-S Tablet] 1 tab PO HS 05/15/16 [History] methylPREDNISolone [Medrol] 4 mg PO BID 05/15/16 [History] Aspirin 81 mg PO DAILY 01/17/17 [History] Pantoprazole Sodium [Protonix] 40 mg PO DAILY 01/17/17 [History] Alendronate Sodium 70 mg PO QWEEK 01/25/17 [History] Celecoxib [Celebrex] 200 mg PO BID 01/25/17 [History] Clopidogrel [Plavix] 75 mg PO DAILY 01/25/17 [History] LORazepam [Ativan] 0.5 mg PO BID 01/25/17 [History] Warfarin [Coumadin] 2 mg PO AD 01/25/17 [History] 3 Allergy/AdvReac Type Severity Reaction Status Date / Time carvedilol [From Coreg] Allergy Gastrointestinal Verified 01/17/17 01:17 Upset diphenhydramine Allergy Chills Verified 01/17/17 01:17 [From Benadryl] Exam Vital Signs, Last 4 Hours Temp Pulse Resp BP Pulse Ox 01/27/17 07:20 98.5 F 93 16 183/94 97 01/27/17 05:43 98.8 F 89 14 162/86 97 Results Reviewed 01/27/17 03:20 01/27/17 03:20 Lab Results 01/27/17 01/27/17 01/26/17 03:20 03:20 09:31 WBC 5.1 RBC 3.09 L Hgb 9.0 L D 7.1 L Hct 27.7 L 22.0 L MCV 89.6 MCH 29.1 MCHC 32.5 RDW 18.2 H Plt Count 262 MPV 9.1 L Neutrophils # 3.8 Lymphocytes # 0.5 L Monocytes # 0.5 Eosinophils # 0.1 Basophils # 0.0 PT INR Sodium 139 Potassium 4.4 Chloride 108 Carbon Dioxide 23 BUN 31 H Creatinine 1.06 Est GFR ( Amer) > 60 Est GFR (Non-Af Amer) > 60 BUN/Creatinine Ratio 29 H Glucose 91 Calcium 7.5 L 01/26/17 01/26/17 01/26/17 02:53 02:53 02:53 WBC 5.0 RBC 2.41 L Hgb 6.9 L D Hct 21.9 L MCV 90.9 MCH 28.6 MCHC 31.5 L RDW 18.3 H Plt Count 271 MPV 9.2 L Neutrophils # 4.0 Lymphocytes # 0.4 L Monocytes # 0.5 Eosinophils # 0.0 Basophils # 0.0 PT 19.7 H INR 1.8 Sodium 138 Potassium 4.3 Chloride 108 Carbon Dioxide 23 BUN 38 H Creatinine 1.27 H Est GFR ( Amer) > 60 Est GFR (Non-Af Amer) 57 L BUN/Creatinine Ratio 30 H Glucose 101 H Calcium 7.9 L 01/25/17 01/25/17 01/25/17 10:40 10:08 00:48 WBC RBC Hgb 9.0 L D 5.9 L* Hct 27.1 L 18.6 L MCV MCH MCHC RDW Plt Count MPV Neutrophils # Lymphocytes # Monocytes # Eosinophils # Basophils # PT INR Sodium 137 Potassium 4.8 H Chloride 109 Carbon Dioxide 18 L BUN 45 H Creatinine 1.48 H Est GFR ( Amer) 58 L Est GFR (Non-Af Amer) 48 L BUN/Creatinine Ratio 30 H Glucose 85 Calcium 7.8 L 01/24/17 01/24/17 22:48 22:48 WBC 9.3 RBC 2.13 L Hgb 6.1 L Hct 20.1 L MCV 94.4 MCH 28.6 MCHC 30.3 L RDW 17.7 H Plt Count 389 MPV 9.2 L Neutrophils # 7.1 Lymphocytes # 1.0 Monocytes # 1.0 Eosinophils # 0.1 Basophils # 0.0 PT INR Sodium 135 L Potassium 5.3 H Chloride 106 Carbon Dioxide 22 BUN 45 H Creatinine 1.60 H Est GFR ( Amer) 53 L Est GFR (Non-Af Amer) 44 L BUN/Creatinine Ratio 28 H Glucose 109 H Calcium 8.3 L Consult Discharge Plan - Plan Referrals: Randy Tse MD [Primary Care Provider] -
[2017-01-27] MEDS: amLODIPine 5 MG TABLET PO SCH (09:21)
[2017-01-27] MEDS ORDERED: 0.9 % Sodium Chloride 1,000 ML IVC SCH (10:30)
--- NOTE | 2017-01-27 11:42 | Orthopedics Progress Note ---
Date of Encounter: 01/27/17 Time of Encounter: 11:39 - Assessment and Plan (1) Thigh hematoma Current Visit: Yes Status: Acute This patient is a 66-year-old male with a large right thigh hematoma with associated pain, particularly with movements. He does not have compartment syndrome. Etiology is likely related to being on warfarin. My recommendation at this point is to reverse the INR. Regarding the hematoma itself treatment options include observation versus aspiration versus surgical drainage. Given the symptomatic nature of the hematoma it would be reasonable to attempt aspiration or even drained surgically. Given his elevated INR and low hemoglobin at this point I am hesitant to recommend surgical decompression for comfort purposes only. I will attempt bedside aspiration. After informed consent was obtained and a timeout to identify the correct patient, correct procedure, the correct side I did use an 18-gauge spinal needle and introduced it into the anterior compartment and attempted to aspirate the hematoma, however I was unable to get more than 2 mL of bloody material. It would be reasonable to consult interventional radiology for placement of a larger drain for the hematoma. Should this not be successful or his INR be successfully reversed and his hemoglobin at a reasonable level we could proceed with surgical drainage of the hematoma. I will follow him clinically with you in the hospital. Qualifiers: Encounter type: initial encounter Laterality: right Qualified Code(s): S70.11XA - Contusion of right thigh, initial encounter Subjective Interval history: S: No change in complaints. No significant pain at rest while lying in bed up to a 6 out of 10 when he tries to move. O: Afebrile and the vital signs are stable though he is tachycardic Right thigh with swelling similar to yesterday Mild tenderness to palpation over the hematoma Thigh compartments are soft No pain with passive knee motion He can grossly dorsiflex and plantar flex ankle and toes and the foot is sensate and well-perfused The foot wound is healing nicely. A: Right thigh hematoma P: My recommendation is for observation; Will likely resorb over time. I do not recommend surgical drainage of the hematoma at this point Physical therapy and occupational therapy when able I recommend up to a chair at least twice a day and therapy to work on ambulation as long as this is okay with podiatry Orthopedically stable for discharge Follow-up in 1-2 weeks for clinical reevaluation or sooner if needed. I will be available for reconsultation as needed. Objective Vital signs: Vital Signs Temp Pulse Resp BP Pulse Ox 01/27/17 10:30 97.7 F 89 16 173/92 97 01/27/17 07:20 98.5 F 93 16 183/94 97 01/27/17 05:43 98.8 F 89 14 162/86 97 01/26/17 23:46 99.4 F 92 14 161/83 96 01/26/17 19:39 98.9 F 91 15 163/87 98 01/26/17 17:06 97.7 F 96 16 148/82 97 01/26/17 14:20 99.1 F 98 18 149/79 97 01/26/17 14:05 98.8 F 104 18 135/78 97 01/26/17 12:41 98.8 F 104 18 135/78 97 01/26/17 12:40 99 F 104 18 124/76 Intake and Output 01/26/17 01/27/17 01/27/17 23:59 07:59 15:59 Intake Total 344 / 344 240 / 240 Output Total 550 / 550 450 / 450 200 / 200 Balance -206 / -206 -210 / -210 -200 / -200 Intake: Oral 0 / 0 240 / 240 Blood Product 344 / 344 Rbcs Leuko Poor As-1 Unit 344 / 344 [id number] Output: Urine 550 / 550 450 / 450 200 / 200 Other: # Bowel Movements 0 0 Weight 78.925 kg Patient Weight 01/27/17 23:59 Weight 78.925 kg - Labs CBC & BMP: 01/27/17 03:20 01/27/17 03:20 Labs: Abnormal lab results RBC 3.09 M/mcL (4.19-5.50) L 01/27/17 03:20 Hgb 9.0 g/dL (12.9-16.9) L D 01/27/17 03:20 Hct 27.7 % (37.5-50.1) L 01/27/17 03:20 RDW 18.2 % (11.5-14.5) H 01/27/17 03:20 MPV 9.1 fL (9.4-12.4) L 01/27/17 03:20 Lymphocytes # 0.5 K/mcL (0.6-4.6) L 01/27/17 03:20 Nucleated RBCs/100 WBC 0.4 /100 WBC (0) H 01/27/17 03:20 PT 19.7 Seconds (9.4-12.1) H 01/26/17 02:53 Fibrinogen 553 mg/dL (169-393) H 01/25/17 21:19 D-Dimer 1116 ng/mLFEU (0-500) H 01/25/17 21:19 BUN 31 mg/dL (8-26) H 01/27/17 03:20 BUN/Creatinine Ratio 29 (6-26) H 01/27/17 03:20 Calcium 7.5 mg/dL (8.6-10.8) L 01/27/17 03:20 Iron 23 mcg/dL (65-175) L 01/24/17 22:48 % Saturation 10 % (20-55) L 01/24/17 22:48 Transferrin 164 mg/dL (174-364) L 01/24/17 22:48 Ferritin 1033 ng/ml (22-275) H 01/24/17 22:48 Lactate Dehydrogenase 344 Units/L (159-327) H 01/24/17 22:48 Vitamin B12 852 pg/mL (213-816) H 01/24/17 22:48 - VTE Documentation of Mechanical Device: Intermittent pneumatic compression device Consult Discharge Plan - Plan Referrals: Randy Tse MD [Primary Care Provider] -
--- NOTE | 2017-01-27 15:14 | Oncology Inp Progress Note ---
Date of Encounter: 01/27/17 Time of Encounter: 15:36 (1) Warfarin-induced coagulopathy Current Visit: Yes Status: Acute Assessment and plan: INR is still elevated at 1.8. Given that he has had 9 months of anticoagulation for a provoked PE, I am comfortable d/c;'ing anticoagulation. Therefore, we can proceed with dosing vitamin K. Given his difficulty with lab draws, I will plan to check INR in am. (2) Anemia associated with acute blood loss Current Visit: Yes Status: Acute Assessment and plan: Hgb dropped. Recheck CBC in morning. He has had nice response to the transfusion from yesterday. Hematoma seems to be resolving clinically. Therefore, the blood loss could be GI in etiology given his + hemoccult stool. Will continue to monitor. (3) Pulmonary embolism Current Visit: Yes Status: Acute Assessment and plan: D/c anticoagulation as above. Qualifiers: Pulmonary embolism type: other Chronicity: chronic Acute cor pulmonale presence: without acute cor pulmonale Qualified Code(s): I27.82 - Chronic pulmonary embolism (4) Thigh hematoma Current Visit: Yes Status: Acute Assessment and plan: appears to be clinicaly resolving. Vitamin K, transfusions as necessary, and discontinuation of anticoagulation as above Qualifiers: Encounter type: initial encounter Laterality: right Qualified Code(s): S70.11XA - Contusion of right thigh, initial encounter Oncology: Subj Interval history: Patient has noticed that swelling is improved. Required 2 units of blood and 2 units of plasma overnight for Hgb that dropped and INR of 1.8. He has no other major complaints at this time. No fever, no dyspnea, no chest pain. Swelling persists in the R upper leg but reduced as mentioned earlier. He wonders if the hematoma will affect his ability to rehab. - Constitutional Vitals: Vital Signs Temp Pulse Resp BP Pulse Ox 01/27/17 10:30 97.7 F 89 16 173/92 97 01/27/17 07:20 98.5 F 93 16 183/94 97 01/27/17 05:43 98.8 F 89 14 162/86 97 01/26/17 23:46 99.4 F 92 14 161/83 96 01/26/17 19:39 98.9 F 91 15 163/87 98 01/26/17 17:06 97.7 F 96 16 148/82 97 Intake and Output 01/27/17 01/27/17 01/27/17 00:59 08:59 16:59 Intake Total 344 / 344 240 / 240 Output Total 550 / 550 450 / 450 200 / 200 Balance -206 / -206 -210 / -210 -200 / -200 Intake: Oral 0 / 0 240 / 240 Blood Product 344 / 344 Rbcs Leuko Poor As-1 Unit 344 / 344 [id number] Output: Urine 550 / 550 450 / 450 200 / 200 Other: Stool Size Large Stool Consistency formed Stool Characteristics Tarry Pasty Stool Color Green Black # Bowel Movements 0 1 Weight 78.925 kg Patient Weight 01/28/17 00:59 Weight 78.925 kg General appearance: cooperative, thin, no febrile, no no acute distress, no obese - Head Head exam: Present: atraumatic, normal inspection, normocephalic - Eye Eye exam: Present: EOMI - Extremities Exam Extremities exam: Present: joint swelling, tenderness (significatn swelling in the RLE without rubor or calor. ) - Neurological Exam Neurological exam: Present: alert, CN II-XII intact, oriented X3, no focal deficits. Absent: altered - Skin Skin exam: Absent: abrasion, erythema Oncology: Obj Data - Labs CBC & Chem 7: 01/27/17 03:20 01/27/17 03:20 Labs: Laboratory Results - last 24 hr 01/24/17 01/27/17 01/27/17 22:48 03:20 03:20 WBC 5.1 RBC 3.09 L Hgb 9.0 L D Hct 27.7 L MCV 89.6 MCH 29.1 MCHC 32.5 RDW 18.2 H Plt Count 262 MPV 9.1 L Immature Gran % 4.0 Seg Neutrophils % 75.4 Lymphocytes % 8.9 Monocytes % 9.3 Eosinophils % 2.0 Basophils % 0.4 Neutrophils # 3.8 Lymphocytes # 0.5 L Monocytes # 0.5 Eosinophils # 0.1 Basophils # 0.0 Nucleated RBCs/100 WBC 0.4 H Sodium 139 Potassium 4.4 Chloride 108 Carbon Dioxide 23 BUN 31 H Creatinine 1.06 Est GFR ( Amer) > 60 Est GFR (Non-Af Amer) > 60 BUN/Creatinine Ratio 29 H Glucose 91 Calculated Osmolality 294 Calcium 7.5 L Stool Occult Blood Crossmatch See Detail 01/27/17 13:00 WBC RBC Hgb Hct MCV MCH MCHC RDW Plt Count MPV Immature Gran % Seg Neutrophils % Lymphocytes % Monocytes % Eosinophils % Basophils % Neutrophils # Lymphocytes # Monocytes # Eosinophils # Basophils # Nucleated RBCs/100 WBC Sodium Potassium Chloride Carbon Dioxide BUN Creatinine Est GFR ( Amer) Est GFR (Non-Af Amer) BUN/Creatinine Ratio Glucose Calculated Osmolality Calcium Stool Occult Blood Positive A Crossmatch - Impressions Impressions Chest CTA 01/27/17 13:00 IMPRESSION: No evidence of pulmonary embolism. Small bilateral pleural effusions. D/ / 01/27/2017 14:26:08 Antelmo Sequeira MD / [facility] Interpreting Provider: Antelmo Sequeira MD - ABG Interpretation ABG results: PT/INR, D-dimer PT 19.7 Seconds (9.4-12.1) H 01/26/17 02:53 D-Dimer 1116 ng/mLFEU (0-500) H 01/25/17 21:19 Consult Discharge Plan - Plan Referrals: Randy Tse MD [Primary Care Provider] -
--- NOTE | 2017-01-27 15:22 | Internal Med Progress Note ---
Date of Encounter: 01/27/17 Time of Encounter: 10:00 - Assessment and plan (1) Pulmonary embolism Current Visit: Yes Status: Acute Assessment and plan: Patient has a history of pulmonary embolism since this April. Probably due to back surgery and immobilization. Patient was on Coumadin since then. - We will hold the Coumadin because of hematoma. - We will consult oncology hematology for further management. - FFP 2 units transfusion given, INR 1.8 today - CTA has been done, no PE now. Qualifiers: Pulmonary embolism type: other Chronicity: chronic Acute cor pulmonale presence: without acute cor pulmonale Qualified Code(s): I27.82 - Chronic pulmonary embolism (2) DVT prophylaxis Current Visit: Yes Status: Acute Assessment and plan: Patient was on Coumadin. Coumadin is on hold now because of hematoma. No further anticoagulations because of acute hematoma on right thigh. EPCD (3) HTN (hypertension) Current Visit: No Status: Chronic Assessment and plan: Continue home medications. Add amlodipine 10 mg daily because BP is high Qualifiers: Hypertension type: essential hypertension Qualified Code(s): I10 - Essential (primary) hypertension (4) CKD (chronic kidney disease) Current Visit: No Status: Chronic Assessment and plan: Patient's creatinine level is at about baseline. Cr level improved today, had CTA, will cont IVF and f/u renal function tomorrow morning. Qualifiers: Chronic kidney disease stage: stage 3 (moderate) Qualified Code(s): N18.3 - Chronic kidney disease, stage 3 (moderate) (5) Anemia Current Visit: No Status: Acute Assessment and plan: Patient has a chronic anemia, probably due to CKD/Lupus. His baseline hemoglobin level is at around 8.0. Oncology input appreciated. Qualifiers: Anemia type: due to chronic kidney disease Chronic kidney disease stage: stage 3 (moderate) Qualified Code(s): N18.3 - Chronic kidney disease, stage 3 (moderate); D63.1 - Anemia in chronic kidney disease; D63.1 - Anemia in chronic kidney disease (6) Hematoma Current Visit: No Status: Acute Assessment and plan: Patient has a recent fall and he is on Coumadin. Right thigh hematoma with pain. Distal pulse is good at this point. We will continue hold Coumadin/ aspirin/Plavix. Two units of FFP were given. Continue pain management. IR consulted, no fluid to be drain. Will continue close follow-up H/H level. (7) Lupus Current Visit: Yes Status: Chronic Assessment and plan: Patient is on chronic steroid use. Will continue home dose at this point. May need stress dose if patient undergoes surgery or have significant disease. Qualifiers: Lupus erythematosus form: unspecified Qualified Code(s): L93.0 - Discoid lupus erythematosus (8) Anemia associated with acute blood loss Current Visit: Yes Status: Acute Assessment and plan: Hemoglobin dropped to 5-6, probably due to large hematoma. Patient denies black stool or coffee ground emesis. - Hgb 9.0 after 4 units of PRBC. - Continue closely monitor vitals and hemoglobin level. (9) Hyperkalemia Current Visit: Yes Status: Acute Assessment and plan: Improved after Kayexalate. (10) PVD (peripheral vascular disease) Current Visit: Yes Status: Chronic Assessment and plan: Patient has hx of PVD. Vascular surgery consult appreciated. No procedure at this point - Time Spent With Patient 25 - 35 minutes - Subjective Interval history: Patient was seen and examined. Complained of right thigh pain, Pain is less. Swelling part is soft. Vital signs stable. Both side popliteal artery pulse remains good on palpation. Hgb 9.0 after 4 units of blood transfusion. Renal function improved, CTA has been done, no residual PE. Will continue IV fluid as patient has CKDand had CTA, follow renal function in a.m. - Constitutional Vitals: Temp Pulse Resp BP Pulse Ox 98.2 F 92 16 143/83 97 01/27/17 15:07 01/27/17 15:07 01/27/17 15:07 01/27/17 15:07 01/27/17 15:07 General appearance: Present: cooperative, A&O X 3, no acute distress - Head Head exam: Present: atraumatic, normocephalic - Eye Eye exam: Present: PERRL, conjuntiva pink, sclera anicteric Pupils: Present: PERRL - Neck Neck exam general surgery: Present: supple, trachea midline. Absent: lymphadenopathy - Respiratory Respiratory exam: Present: CTAB. Absent: accessory muscle use, rales, rhonchi, wheezes - Cardiovascular Cardiovascular exam: Present: RRR, +S1, +S2. Absent: diastolic murmur, gallop, rubs, systolic murmur - GI/Abdominal GI/Abdominal exam: Present: normal bowel sounds, soft, no peritoneal signs. Absent: distended, tenderness - Extremities Exam Extremities exam: Present: warm, radial pulses palpable and symmetrical. Absent : calf tenderness, cyanotic, pedal edema Additional comments: Right thigh swelling with tenderness - Neurological Exam Neurological exam: Present: CN II-XII intact, oriented X3, no focal deficits. Absent: pronater drift, facial droop, speech deficit - Skin Skin exam: Present: dry, intact Internal Medicine: Result - Labs CBC & Chem 7: 01/27/17 03:20 01/27/17 03:20 Labs: Short CBC 01/27/17 Range/Units 03:20 WBC 5.1 (4.3-11.1) K/mcL Hgb 9.0 L D (12.9-16.9) g/dL Hct 27.7 L (37.5-50.1) % Plt Count 262 (140-400) K/mcL Neutrophils # 3.8 (1.6-8.9) K/mcL BMP 01/27/17 03:20 Sodium 139 Potassium 4.4 Chloride 108 Carbon Dioxide 23 BUN 31 H Creatinine 1.06 Glucose 91 Calcium 7.5 L - ABG Interpretation ABG results: PT/INR, D-dimer PT 19.7 Seconds (9.4-12.1) H 01/26/17 02:53 D-Dimer 1116 ng/mLFEU (0-500) H 01/25/17 21:19 - Impressions Impressions Chest CTA 01/27/17 13:00 IMPRESSION: No evidence of pulmonary embolism. Small bilateral pleural effusions. D/ / 01/27/2017 14:26:08 Antelmo Sequeira MD / cristofer Interpreting Provider: Antelmo Sequeira MD - VTE Documentation of Mechanical Device: Intermittent pneumatic compression device Consult Discharge Plan - Plan Referrals: Randy Tse MD [Primary Care Provider] -
[2017-01-27] MEDS ORDERED: *HR* Phytonadione 5 MG TABLET PO ONE (15:34)
[2017-01-27] MEDS: Sennosides/Docusate Sodium TABLET PO SCH (21:11)
[2017-01-28 06:53] LABS: Basophils % 0.5 %; Eosinophils # 0.1 K/mcL (0.0-0.6); Eosinophils % 3.2 %; Hematocrit 28.8 % (37.5-50.1); Immature Granulocytes % 2.5 % (0-4); Lymphocytes # 0.4 K/mcL (0.6-4.6); Mean Corpuscular HGB Conc 31.3 g/dL (31.6-35.5); Mean Corpuscular Hemoglobin 28.4 pg (28.0-33.3); Mean Corpuscular Volume 90.9 fL (83.0-100.0); Mean Platelet Volume 9.2 fL (9.4-12.4); Monocytes # 0.4 K/mcL (0.0-1.3); Monocytes % 9.2 %; Neutrophils # 3.4 K/mcL (1.6-8.9); Nucleated Red Blood Cells 0.5 /100 WBC (0); Platelet Count 319 K/mcL (140-400); Red Blood Count 3.17 M/mcL (4.19-5.50); Red Cell Distribution Width 17.8 % (11.5-14.5); Segmented Neutrophils % 75.6 %
[2017-01-28 07:03] LABS: BUN/Creatinine Ratio 29 (6-26); Blood Urea Nitrogen 26 mg/dL (8-26); Calcium 8.2 mg/dL (8.6-10.8); Carbon Dioxide 20 mEq/L (19-29); Chloride 108 mEq/L (98-109); Glucose 79 mg/dL (70-99); Osmolality,Calculated 284 (280-300); Potassium 4.4 mEq/L (3.5-4.5); Sodium 135 mEq/L (136-145); eGFR For African Americans > 60 (> 60); eGFR For Non-African Americans > 60 (> 60)
[2017-01-28] MEDS: Metoprolol XL (24 HR) Succ 25 MG TAB.ER.24H PO SCH (09:35)
[2017-01-28] MEDS: Ascorbic Acid 500 MG TABLET PO SCH (09:35)
[2017-01-28] MEDS: amLODIPine 5 MG TABLET PO SCH (09:35)
[2017-01-28] MEDS: methylPREDNISolone 4 MG TABLET PO SCH ×2 (09:35→20:43)
[2017-01-28] MEDS: *HR* LORazepam 0.5 MG TABLET PO SCH ×2 (09:35→20:44)
--- NOTE | 2017-01-28 10:19 | Podiatry Consult Note ---
Date of Encounter: 01/27/17 Time of Encounter: 10:16 Assessment and Plan (1) Great toe amputation status Current visit: No Status: Acute The patient was instructed that at this time the wounds appear to be healing well. The patient was instructed to minimize weightbearing and monitor for any increasing signs of infection. At this time I feel as though the skin would benefit from additional healing prior to removing the sutures. We will wait until February 01 to remove the sutures. If the patient is still in-house we will remove them at that time, if he is discharged, he will follow- up with his foot surgeon to have them removed. 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 Pichardo is a 66 year old male who relates that about 3 weeks ago he had surgery on both feet. Patient relates that he had an amputation to the great toe on the left foot and a ray resection on the lateral aspect of the right foot. Patient relates that they are not causing him any pain or issue. Patient relates that he feels as though they are healing well and is inquiring about whether the sutures will come out. Past Med Surg Social Fam HX - Past Medical History Medical history: arthritis, DVT, GERD, hyperlipidemia, hypertension, kidney stones, renal disease, other Psychiatric history: anxiety - Past Surgical History Surgical History: angioplasty/stent (Left lower extremity interventions performed in December 2016 at [place]), orthopedic, other (Spine surgery performed in April 2016) - Social History Smoking Status: Never smoker Smokeless Tobacco Status: No Alcohol use: none Drug use: none - Family History Mother Living Status: Age at : 81 Cause of : Demantia, old age Hx Family Neurologic Disorders: Yes Father Living Status: Age at : 82 Cause of : Respiratory failure Hx Family Cardiac Disorders: Yes (Hypertension) Hx Family Respiratory Disorders: Yes (Aspestis) Medications and Allergies Acetaminophen [Tylenol] 650 mg PO Q6HR PRN 05/15/16 [History] Ascorbic Acid [C-1000] 1,000 mg PO DAILY 05/15/16 [History] Calcitriol [Rocaltrol] 0.25 mcg PO HS 05/15/16 [History] Cyclobenzaprine [Flexeril] 5 mg PO TID PRN 05/15/16 [History] Ferrous Sulfate [Iron] 325 mg PO BIDWM 05/15/16 [History] Hydroxychloroquine [Plaquenuil] 200 mg PO BID 05/15/16 [History] Metoprolol XL (24 HR) Succ [Toprol XL] 25 mg PO DAILY 05/15/16 [History] OxyCODONE Immed Rel [Roxicodone 5 MG] 5 mg PO Q4H PRN 05/15/16 [History] Paroxetine HCl [Paxil] 20 mg PO DAILY 05/15/16 [History] Sennosides/Docusate Sodium [Senna-S Tablet] 1 tab PO HS 05/15/16 [History] methylPREDNISolone [Medrol] 4 mg PO BID 05/15/16 [History] Aspirin 81 mg PO DAILY 01/17/17 [History] Pantoprazole Sodium [Protonix] 40 mg PO DAILY 01/17/17 [History] Alendronate Sodium 70 mg PO QWEEK 01/25/17 [History] Celecoxib [Celebrex] 200 mg PO BID 01/25/17 [History] Clopidogrel [Plavix] 75 mg PO DAILY 01/25/17 [History] LORazepam [Ativan] 0.5 mg PO BID 01/25/17 [History] Warfarin [Coumadin] 2 mg PO AD 01/25/17 [History] 3 Allergy/AdvReac Type Severity Reaction Status Date / Time carvedilol [From Coreg] Allergy Gastrointestinal Verified 01/17/17 01:17 Upset diphenhydramine Allergy Chills Verified 01/17/17 01:17 [From Benadryl] All Systems Reviewed: A 10-system review of systems was performed and is negative for pertinent findings except as documented above in the HPI. Physical Exam - Constitutional Vitals: Temp Pulse Resp BP Pulse Ox 99.7 F H 75 16 152/64 93 01/28/17 06:43 01/28/17 06:43 01/28/17 06:43 01/28/17 06:43 01/28/17 06:43 General appearance: cooperative, thin, no febrile, no no acute distress, no obese Exam: Pedal pulses are difficult to palpate at this time. Capillary fill time is intact to the digits. The incision site along the lateral aspect of the right foot appears to be healing well and the incision site along the left great toe appears to be healing well. The skin is almost coapted. Sensation slightly decreased at the digits. No significant edema noted. No fluctuance or warmth noted. No ischemic changes at this time to bilateral feet. Results - Labs Result Diagrams: 01/28/17 05:10 01/28/17 05:19 Labs: Abnormal lab results RBC 3.17 M/mcL (4.19-5.50) L 01/28/17 05:10 Hgb 9.0 g/dL (12.9-16.9) L 01/28/17 05:10 Hct 28.8 % (37.5-50.1) L 01/28/17 05:10 MCHC 31.3 g/dL (31.6-35.5) L 01/28/17 05:10 RDW 17.8 % (11.5-14.5) H 01/28/17 05:10 MPV 9.2 fL (9.4-12.4) L 01/28/17 05:10 Lymphocytes # 0.4 K/mcL (0.6-4.6) L 01/28/17 05:10 Nucleated RBCs/100 WBC 0.5 /100 WBC (0) H 01/28/17 05:10 PT 19.7 Seconds (9.4-12.1) H 01/26/17 02:53 Fibrinogen 553 mg/dL (169-393) H 01/25/17 21:19 D-Dimer 1116 ng/mLFEU (0-500) H 01/25/17 21:19 Sodium 135 mEq/L (136-145) L 01/28/17 05:19 BUN/Creatinine Ratio 29 (6-26) H 01/28/17 05:19 Calcium 8.2 mg/dL (8.6-10.8) L 01/28/17 05:19 Iron 23 mcg/dL (65-175) L 01/24/17 22:48 % Saturation 10 % (20-55) L 01/24/17 22:48 Transferrin 164 mg/dL (174-364) L 01/24/17 22:48 Ferritin 1033 ng/ml (22-275) H 01/24/17 22:48 Lactate Dehydrogenase 344 Units/L (159-327) H 01/24/17 22:48 Vitamin B12 852 pg/mL (213-816) H 01/24/17 22:48 Stool Occult Blood Positive (Negative) A 01/27/17 13:00 H & H 01/28/17 Range/Units 05:10 Hgb 9.0 L (12.9-16.9) g/dL Hct 28.8 L (37.5-50.1) % All other labs normal. Consult Discharge Plan - Plan Referrals: Randy Tse MD [Primary Care Provider] -
--- NOTE | 2017-01-28 10:21 | Internal Med Progress Note ---
Date of Encounter: 01/28/17 Time of Encounter: 10:19 - Assessment and plan (1) Thigh hematoma Current Visit: Yes Status: Acute Assessment and plan: Secondary to mechanical fall. Patient has been evaluated by vascular surgery and orthopedics; bedside needle aspiration of the hematoma has been unsuccessfully attempted. Interventional radiology recommended continued monitoring/waiting until hematoma liquefies. Patient is clinically improving, plan is to continue to monitor. Patient received FFP's and vitamin K and INR today is normal. Pain control with when necessary oxycodone and IV morphine. Physical and occupational therapy evaluation. Hematology consult appreciated, no further anticoagulation is recommended as patient completed at least 6 months of anticoagulation for provoked VTE event. Qualifiers: Encounter type: subsequent encounter Laterality: right Qualified Code(s) : S70.11XD - Contusion of right thigh, subsequent encounter (2) Osteomyelitis Current Visit: Yes Status: Acute Assessment and plan: Reviewed records from [facility], patient underwent left great toe and right fifth toe amputations about 3 weeks ago, has been started on IV antibiotics for osteomyelitis and discharged to [place] [facility]. Continue IV vancomycin and cefepime. Podiatry consult noted, continue local wound care. Patient needs outpatient follow-up with his educational guidance counselor. Qualifiers: Osteomyelitis type: other acute Osteomyelitis location: foot Laterality: unspecified laterality Qualified Code(s): M86.179 - Other acute osteomyelitis , unspecified ankle and foot (3) CKD (chronic kidney disease) Current Visit: Yes Status: Chronic Assessment and plan: Serum creatinine noted to be stable. Continue to monitor closely. Qualifiers: Chronic kidney disease stage: stage 3 (moderate) Qualified Code(s): N18.3 - Chronic kidney disease, stage 3 (moderate) (4) Anemia Current Visit: Yes Status: Acute Assessment and plan: Patient presented with acute on chronic anemia, status post 4 units PRBC transfusion during this admission. Hemoglobin currently stable. Continue to monitor. Qualifiers: Anemia type: due to chronic kidney disease Chronic kidney disease stage: stage 3 (moderate) Qualified Code(s): N18.3 - Chronic kidney disease, stage 3 (moderate); D63.1 - Anemia in chronic kidney disease; D63.1 - Anemia in chronic kidney disease (5) Lupus Current Visit: Yes Status: Chronic Qualifiers: Lupus erythematosus form: unspecified Qualified Code(s): L93.0 - Discoid lupus erythematosus (6) Pulmonary embolism Current Visit: Yes Status: Inactive Qualifiers: Pulmonary embolism type: other Chronicity: chronic Acute cor pulmonale presence: without acute cor pulmonale Qualified Code(s): I27.82 - Chronic pulmonary embolism (7) PVD (peripheral vascular disease) Current Visit: Yes Status: Chronic (8) Warfarin-induced coagulopathy Current Visit: Yes Status: Resolved - Subjective Interval history: Reports feeling well; continues to have right thigh swelling and pain; improving , tolerable with PO pain meds; no nausea, vomiting, fever/chills; has not been out of bed since admission; - Constitutional Vitals: Temp Pulse Resp BP Pulse Ox 99.7 F H 75 16 152/64 93 01/28/17 06:43 01/28/17 06:43 01/28/17 06:43 01/28/17 06:43 01/28/17 06:43 General appearance: Present: cooperative, A&O X 3, answers questions appropriately - Respiratory Respiratory exam: Present: CTAB. Absent: accessory muscle use, rales, rhonchi, wheezes - Cardiovascular Cardiovascular exam: Present: RRR, +S1, +S2. Absent: diastolic murmur, gallop, rubs, systolic murmur - GI/Abdominal GI/Abdominal exam: Present: normal bowel sounds, soft, no peritoneal signs. Absent: distended, tenderness - Extremities Exam Extremities exam: Present: warm, radial pulses palpable and symmetrical. Absent : calf tenderness, cyanotic, pedal edema Additional comments: right thigh- warm, tender, localized upper thigh swelling; B/L feet in dry dressings; Internal Medicine: Result - Labs CBC & Chem 7: 01/28/17 05:10 01/28/17 05:19 Labs: Short CBC 01/28/17 Range/Units 05:10 WBC 4.4 (4.3-11.1) K/mcL Hgb 9.0 L (12.9-16.9) g/dL Hct 28.8 L (37.5-50.1) % Plt Count 319 (140-400) K/mcL Neutrophils # 3.4 (1.6-8.9) K/mcL BMP 01/28/17 05:19 Sodium 135 L Potassium 4.4 Chloride 108 Carbon Dioxide 20 BUN 26 Creatinine 0.91 Glucose 79 Calcium 8.2 L - ABG Interpretation ABG results: PT/INR, D-dimer PT 19.7 Seconds (9.4-12.1) H 01/26/17 02:53 D-Dimer 1116 ng/mLFEU (0-500) H 01/25/17 21:19 - Impressions Impressions Chest CTA 01/27/17 13:00 IMPRESSION: No evidence of pulmonary embolism. Small bilateral pleural effusions. D/ / 01/27/2017 14:26:08 Antelmo Sequeira MD / cristofer Interpreting Provider: Antelmo Sequeira MD - VTE Documentation of Mechanical Device: Intermittent pneumatic compression device Consult Discharge Plan - Plan Referrals: Randy Tse MD [Primary Care Provider] - 02/06/17 11:00 am
[2017-01-28 11:23] LABS: INR 1.1
[2017-01-28] MEDS ORDERED: Aminoglycoside Consult 1 EACH MC ONE (12:30)
[2017-01-28] MEDS: Acetaminophen 325 MG TABLET PO PRN (14:07)
[2017-01-28] MEDS ORDERED: *HR* HYDROmorphone 2 MG/ML SYRINGE IVP PRN (14:43)
[2017-01-28] MEDS ORDERED: Vancomycin 1,250 MG in D5% in Water 250 ML IVPB SCH ×2 (15:00→16:00)
--- NOTE | 2017-01-28 16:13 | Oncology Inp Progress Note ---
Date of Encounter: 01/28/17 Time of Encounter: 16:11 (1) Warfarin-induced coagulopathy Current Visit: Yes Status: Acute Assessment and plan: INR has now normalized with vitamin K. No need for continued anticoagulation. Hgb is also stable. Given that he had provoked PE and that he has completed anticoagulation, he does not necessarily need outpatient hematology f/u. (2) Anemia associated with acute blood loss Current Visit: Yes Status: Acute Assessment and plan: Hgb is now stable at 9. (3) Pulmonary embolism Current Visit: Yes Status: Acute Assessment and plan: D/c anticoagulation as above. Qualifiers: Pulmonary embolism type: other Chronicity: chronic Acute cor pulmonale presence: without acute cor pulmonale Qualified Code(s): I27.82 - Chronic pulmonary embolism (4) Thigh hematoma Current Visit: Yes Status: Acute Assessment and plan: appears to be clinicaly resolving. ROM of the RLE is improving. At this point , I agree with the PT/OT evaluation. Based on that, I would anticipate that his disposition plan would become more apparent. Qualifiers: Encounter type: subsequent encounter Laterality: right Qualified Code(s) : S70.11XD - Contusion of right thigh, subsequent encounter Oncology: Subj Interval history: Hemboglobin remains stable. INr has normalized to 1.1 after dose of vitamin K overnight. The swelling of his RLE is improving. He has far more ability to bend the leg which he could not do at all yesterday. His pain is under much better control As indicated earlier, he has not been out of bed during this admission. He is concerned about not being able to walk. PT/OT has not seen him as of yet for evaluation. - Constitutional Vitals: Vital Signs Temp Pulse Resp BP Pulse Ox 01/28/17 15:46 98.9 F 95 16 137/84 98 01/28/17 12:06 98.7 F 99 16 149/86 98 01/28/17 06:43 99.7 F H 75 16 152/64 93 01/28/17 03:58 98.3 F 91 14 148/87 97 01/27/17 23:12 98.1 F 91 14 143/82 99 01/27/17 19:20 99.0 F 92 15 129/79 96 Intake and Output 01/28/17 01/28/17 01/28/17 00:59 08:59 16:59 Intake Total 440 / 440 200 / 200 720 / 720 Output Total 425 / 425 550 / 550 575 / 575 Balance 15 / 15 -350 / -350 145 / 145 Intake: Oral 440 / 440 200 / 200 720 / 720 Output: Urine 425 / 425 550 / 550 575 / 575 Other: Meal Dinner Lunch Percent of Meal Consumed 75% 25% Stool Size Large Stool Consistency formed Stool Color Black # Bowel Movements 1 Weight 78.925 kg Patient Weight 01/29/17 00:59 Weight 78.925 kg General appearance: average body habitus, cooperative, no acute distress, thin, no febrile - Head Head exam: Present: atraumatic, normal inspection, normocephalic - Eye Eye exam: Present: EOMI, normal appearance - Extremities Exam Extremities exam: Present: tenderness. Absent: normal inspection Additional comments: swelling is decreasing in the R thigh. Patient abl;e to flex the leg to about 90+ degrees. - Neurological Exam Neurological exam: Present: alert, oriented X3. Absent: altered, speech deficit Oncology: Obj Data - Labs CBC & Chem 7: 01/28/17 05:10 01/28/17 05:19 Labs: Laboratory Results - last 24 hr 01/28/17 01/28/17 01/28/17 05:10 05:19 11:04 WBC 4.4 RBC 3.17 L Hgb 9.0 L Hct 28.8 L MCV 90.9 MCH 28.4 MCHC 31.3 L RDW 17.8 H Plt Count 319 MPV 9.2 L Immature Gran % 2.5 Seg Neutrophils % 75.6 Lymphocytes % 9.0 Monocytes % 9.2 Eosinophils % 3.2 Basophils % 0.5 Neutrophils # 3.4 Lymphocytes # 0.4 L Monocytes # 0.4 Eosinophils # 0.1 Basophils # 0.0 Nucleated RBCs/100 WBC 0.5 H PT 12.0 INR 1.1 Sodium 135 L Potassium 4.4 Chloride 108 Carbon Dioxide 20 BUN 26 Creatinine 0.91 Est GFR ( Amer) > 60 Est GFR (Non-Af Amer) > 60 BUN/Creatinine Ratio 29 H Glucose 79 Calculated Osmolality 284 Calcium 8.2 L - ABG Interpretation ABG results: PT/INR, D-dimer PT 12.0 Seconds (9.4-12.1) 01/28/17 11:04 D-Dimer 1116 ng/mLFEU (0-500) H 01/25/17 21:19 Consult Discharge Plan - Plan Referrals: Randy Tse MD [Primary Care Provider] -
[2017-01-28 16:52] LABS: APTT (LE Anticoag) 68 sec (32-48); Diluted Russell Viper Venom 44 sec (33-44); LE Coag APTT Mixing 54 sec (32-48); PT (LE-Anticoag) 19.9 sec (12.0-15.5); Thrombin Time 14.9 sec (14.7-19.5)
[2017-01-28] MEDS: Cefepime HCl 2,000 MG in Water for inj. (sterile) 20 ML IVP SCH (18:46)
[2017-01-28] MEDS: Sennosides/Docusate Sodium TABLET PO SCH (20:44)
[2017-01-28] MEDS: *HR* OxyCODONE/APAP 5/325 TABLET PO PRN (20:44)
[2017-01-29] MEDS: Cefepime HCl 2,000 MG in Water for inj. (sterile) 20 ML IVP SCH (04:44)
[2017-01-29 07:30] LABS: Basophils % 0.2 %; Eosinophils # 0.2 K/mcL (0.0-0.6); Eosinophils % 3.7 %; Hematocrit 29.4 % (37.5-50.1); Hemoglobin 9.4 g/dL (12.9-16.9); Immature Granulocytes % 3.7 % (0-4); Lymphocytes # 0.8 K/mcL (0.6-4.6); Lymphocytes % 15.7 %; Mean Corpuscular Hemoglobin 28.5 pg (28.0-33.3); Mean Corpuscular Volume 89.1 fL (83.0-100.0); Mean Platelet Volume 8.8 fL (9.4-12.4); Monocytes # 0.6 K/mcL (0.0-1.3); Monocytes % 12.4 %; Neutrophils # 3.1 K/mcL (1.6-8.9); Platelet Count 350 K/mcL (140-400); Red Cell Distribution Width 16.8 % (11.5-14.5); Segmented Neutrophils % 64.3 %
[2017-01-29 07:36] LABS: BUN/Creatinine Ratio 26 (6-26); Blood Urea Nitrogen 24 mg/dL (8-26); Calcium 8.2 mg/dL (8.6-10.8); Carbon Dioxide 19 mEq/L (19-29); Chloride 106 mEq/L (98-109); Glucose 80 mg/dL (70-99); Osmolality,Calculated 283 (280-300); Potassium 4.2 mEq/L (3.5-4.5); Sodium 135 mEq/L (136-145); eGFR For African Americans > 60 (> 60); eGFR For Non-African Americans > 60 (> 60)
[2017-01-29] MEDS: amLODIPine 5 MG TABLET PO SCH (08:36)
[2017-01-29] MEDS: Ascorbic Acid 500 MG TABLET PO SCH (08:36)
[2017-01-29] MEDS: Acetaminophen 325 MG TABLET PO PRN ×2 (08:36→17:19)
[2017-01-29] MEDS: *HR* LORazepam 0.5 MG TABLET PO SCH ×2 (08:37→20:47)
[2017-01-29] MEDS: methylPREDNISolone 4 MG TABLET PO SCH ×2 (08:37→20:46)
[2017-01-29] MEDS: Metoprolol XL (24 HR) Succ 25 MG TAB.ER.24H PO SCH (08:37)
[2017-01-29 08:40] LABS: Antithrombin III, Activity 97 % (76-128); Protein C, Functional 22 % (83-168); Protein S, Functional 24 % (66-143)
[2017-01-29] MEDS: *HR* OxyCODONE/APAP 5/325 TABLET PO PRN ×2 (13:24→20:47)
--- NOTE | 2017-01-29 14:48 | Internal Med Progress Note ---
Date of Encounter: 01/29/17 Time of Encounter: 10:30 - Assessment and plan (1) Thigh hematoma Current Visit: Yes Status: Acute Assessment and plan: Secondary to mechanical fall. Patient has been evaluated by vascular surgery and orthopedics; bedside needle aspiration of the hematoma has been unsuccessfully attempted. Interventional radiology recommended continued monitoring/waiting until hematoma liquefies. Patient is clinically improving, plan is to continue to monitor. Patient received FFP's and vitamin K and INR came back to normal. Pain control with when necessary oxycodone, will d/c Dilaudid anticipating discharge soon. Physical and occupational therapy evaluation pending. Hematology consult appreciated, no further anticoagulation is recommended as patient completed at least 6 months of anticoagulation for provoked VTE event. CTA chest showed no current PE. Qualifiers: Encounter type: subsequent encounter Laterality: right Qualified Code(s) : S70.11XD - Contusion of right thigh, subsequent encounter (2) Osteomyelitis Current Visit: Yes Status: Ruled-out Assessment and plan: Reviewed records from [facility], patient underwent left great toe and right fifth toe amputations about 3 weeks ago, has been started on IV antibiotics for osteomyelitis but later deemed to have osteomyelitis ruled out. He was possibly discharged on PO Levaquin and Flagyl for 30days, which he claims have never been started at rehab. At this time, will hold off antibiotics and recommend outpatient Podiatry f/up. Inpatient Podiatry consult noted, continue local wound care. Qualifiers: Osteomyelitis type: other acute Osteomyelitis location: foot Laterality: unspecified laterality Qualified Code(s): M86.179 - Other acute osteomyelitis , unspecified ankle and foot (3) CKD (chronic kidney disease) Current Visit: Yes Status: Chronic Assessment and plan: Serum creatinine noted to be stable. Continue to monitor closely. Qualifiers: Chronic kidney disease stage: stage 3 (moderate) Qualified Code(s): N18.3 - Chronic kidney disease, stage 3 (moderate) (4) Anemia Current Visit: Yes Status: Acute Assessment and plan: Patient presented with acute on chronic anemia, status post 4 units PRBC transfusion during this admission. Hemoglobin currently stable. Continue to monitor. Qualifiers: Anemia type: due to chronic kidney disease Chronic kidney disease stage: stage 3 (moderate) Qualified Code(s): N18.3 - Chronic kidney disease, stage 3 (moderate); D63.1 - Anemia in chronic kidney disease; D63.1 - Anemia in chronic kidney disease (5) Lupus Current Visit: Yes Status: Chronic Assessment and plan: Patient is on chronic steroid use. Will continue home dose at this point. Qualifiers: Lupus erythematosus form: unspecified Qualified Code(s): L93.0 - Discoid lupus erythematosus (6) Pulmonary embolism Current Visit: Yes Status: Inactive Qualifiers: Pulmonary embolism type: other Chronicity: chronic Acute cor pulmonale presence: without acute cor pulmonale Qualified Code(s): I27.82 - Chronic pulmonary embolism (7) PVD (peripheral vascular disease) Current Visit: Yes Status: Chronic (8) Warfarin-induced coagulopathy Current Visit: Yes Status: Resolved - Subjective Interval history: No new complaints; tolerates diet, has bowel movements; continues to have right thigh pain on movement; awaiting PT evaluation and rehab placement; - Constitutional Vitals: Temp Pulse Resp BP Pulse Ox 98.5 F 102 16 153/80 95 01/29/17 10:53 01/29/17 10:53 01/29/17 10:53 01/29/17 10:53 01/29/17 10:53 General appearance: Present: A&O X 3, answers questions appropriately - Respiratory Respiratory exam: Present: CTAB. Absent: accessory muscle use, rales, rhonchi, wheezes - Cardiovascular Cardiovascular exam: Present: RRR, +S1, +S2, tachycardia. Absent: diastolic murmur, gallop, rubs, systolic murmur - GI/Abdominal GI/Abdominal exam: Present: normal bowel sounds, soft, no peritoneal signs. Absent: distended, tenderness - Neurological Exam Neurological exam: Present: CN II-XII intact, oriented X3, no focal deficits. Absent: pronater drift, facial droop, speech deficit Internal Medicine: Result - Labs CBC & Chem 7: 01/29/17 07:11 01/29/17 07:11 Labs: Short CBC 01/29/17 Range/Units 07:11 WBC 4.8 (4.3-11.1) K/mcL Hgb 9.4 L (12.9-16.9) g/dL Hct 29.4 L (37.5-50.1) % Plt Count 350 (140-400) K/mcL Neutrophils # 3.1 (1.6-8.9) K/mcL BMP 01/29/17 07:11 Sodium 135 L Potassium 4.2 Chloride 106 Carbon Dioxide 19 BUN 24 Creatinine 0.94 Glucose 80 Calcium 8.2 L - ABG Interpretation ABG results: PT/INR, D-dimer PT 12.0 Seconds (9.4-12.1) 01/28/17 11:04 D-Dimer 1116 ng/mLFEU (0-500) H 01/25/17 21:19 - VTE Documentation of Mechanical Device: Intermittent pneumatic compression device Consult Discharge Plan - Plan Referrals: Randy Tse MD [Primary Care Provider] - 02/06/17 11:00 am
[2017-01-29 19:22] LABS: Prothrombin G20210A Specimen WHOLE BLOOD
[2017-01-29] MEDS: Sennosides/Docusate Sodium TABLET PO SCH (20:47)
[2017-01-29 22:28] LABS: FACV Specimen WHOLE BLOOD
[2017-01-30 00:37] LABS: Alpha 2 Globulin (PEP) 0.58 g/dL (0.48-1.05); Beta Globulin (PEP) 1.34 g/dL (0.48-1.10)
[2017-01-30 07:35] LABS: Prothrombin G20210A Mut Result NEGATIVE
[2017-01-30 07:36] LABS: Fac V Leiden R506Q Mut Result NEGATIVE
[2017-01-30 07:42] LABS: Immunoglobulin G 637 mg/dL (768-1632)
[2017-01-30 07:43] LABS: IFE Reflexed IFE Done; Immunoglobulin A 262 mg/dL (68-408); Immunoglobulin M 61 mg/dL (35-263)
[2017-01-30] MEDS: *HR* LORazepam 0.5 MG TABLET PO SCH (09:13)
[2017-01-30] MEDS: amLODIPine 5 MG TABLET PO SCH (09:13)
[2017-01-30] MEDS: methylPREDNISolone 4 MG TABLET PO SCH (09:14)
[2017-01-30] MEDS: *HR* OxyCODONE/APAP 5/325 TABLET PO PRN (09:14)
[2017-01-30] MEDS: Ascorbic Acid 500 MG TABLET PO SCH (09:14)
[2017-01-30] MEDS: Metoprolol XL (24 HR) Succ 25 MG TAB.ER.24H PO SCH (09:14)
[2017-01-30] MEDS ORDERED: Metoprolol XL (24 HR) Succ 25 MG TAB.ER.24H PO SCH (10:31)
--- NOTE | 2017-01-30 12:53 | Discharge Summary ---
Date of Encounter: 01/30/17 Time of Encounter: 11:00 - Discharge Diagnosis (1) Thigh hematoma Priority: Primary Status: Acute Qualifiers: Encounter type: subsequent encounter Laterality: right Qualified Code(s) : S70.11XD - Contusion of right thigh, subsequent encounter (2) Osteomyelitis Priority: Secondary Status: Ruled-out Qualifiers: Osteomyelitis type: other acute Osteomyelitis location: foot Laterality: unspecified laterality Qualified Code(s): M86.179 - Other acute osteomyelitis , unspecified ankle and foot (3) CKD (chronic kidney disease) Priority: Secondary Status: Chronic Qualifiers: Chronic kidney disease stage: stage 3 (moderate) Qualified Code(s): N18.3 - Chronic kidney disease, stage 3 (moderate) (4) Anemia Priority: Primary Status: Acute Qualifiers: Anemia type: due to chronic kidney disease Chronic kidney disease stage: stage 3 (moderate) Qualified Code(s): N18.3 - Chronic kidney disease, stage 3 (moderate); D63.1 - Anemia in chronic kidney disease; D63.1 - Anemia in chronic kidney disease (5) Lupus Priority: Secondary Status: Chronic Qualifiers: Lupus erythematosus form: unspecified Qualified Code(s): L93.0 - Discoid lupus erythematosus (6) Pulmonary embolism Priority: Secondary Status: Inactive Qualifiers: Pulmonary embolism type: other Chronicity: chronic Acute cor pulmonale presence: without acute cor pulmonale Qualified Code(s): I27.82 - Chronic pulmonary embolism (7) PVD (peripheral vascular disease) Priority: Secondary Status: Chronic (8) Warfarin-induced coagulopathy Priority: Primary Status: Resolved (9) HTN (hypertension) Priority: Secondary Status: Chronic Qualifiers: Hypertension type: essential hypertension Qualified Code(s): I10 - Essential (primary) hypertension - Discharge Medications Prescriptions: OxyCODONE/APAP 5/325 [Percocet 5/325 MG] 1 each PO Q6HR PRN #15 tablet PRN Reason: Pain Home Medications: Acetaminophen [Tylenol] 650 mg PO Q6HR PRN 05/15/16 [History] Ascorbic Acid [C-1000] 1,000 mg PO DAILY 05/15/16 [History] Calcitriol [Rocaltrol] 0.25 mcg PO HS 05/15/16 [History] Cyclobenzaprine [Flexeril] 5 mg PO TID PRN 05/15/16 [History] Ferrous Sulfate [Iron] 325 mg PO BIDWM 05/15/16 [History] Hydroxychloroquine [Plaquenuil] 200 mg PO BID 05/15/16 [History] Paroxetine HCl [Paxil] 20 mg PO DAILY 05/15/16 [History] Sennosides/Docusate Sodium [Senna-S Tablet] 1 tab PO HS 05/15/16 [History] methylPREDNISolone [Medrol] 4 mg PO BID 05/15/16 [History] Pantoprazole Sodium [Protonix] 40 mg PO DAILY 01/17/17 [History] Alendronate Sodium 70 mg PO QWEEK 01/25/17 [History] Celecoxib [Celebrex] 200 mg PO BID 01/25/17 [History] LORazepam [Ativan] 0.5 mg PO BID 01/25/17 [History] Metoprolol XL (24 HR) Succ [Toprol Xl] 50 mg PO DAILY tab.er.24h 01/30/17 [Rx] OxyCODONE/APAP 5/325 [Percocet 5/325 MG] 1 each PO Q6HR PRN #15 tablet 01/30/17 [Rx] amLODIPine [Norvasc] 10 mg PO DAILY tablet 01/30/17 [Rx] Allergies/Adverse Reactions: 3 Allergy/AdvReac Type Severity Reaction Status Date / Time carvedilol [From Coreg] Allergy Gastrointestinal Verified 01/17/17 01:17 Upset diphenhydramine Allergy Chills Verified 01/17/17 01:17 [From Benadryl] Procedures/tests Complete & Pending: Procedures Performed prior 72 hours Category Date Time Status CTA chest [CT angio chest] [CT] Routine Cat Scan 01/27/17 13:00 Completed Date of admission: 01/24/17 17:43 Primary care physician: Randy Tse MD Consults: 01/25/17 10:09 Consult to Oncology Hematology [CONS] Routine Consulting Provider: Herbert Guajardo Reason for Consult: PE on coumadin, hematoma Call Completed: Yes Consult to Orthopedic Surgery [CONS] Routine Consulting Provider: [facility] Reason for Consult: Thigh hematoma Call Completed: Yes 01/25/17 10:14 Consult to Vascular Surgery [CONS] Routine Consulting Provider: Vascular Surgery [facility] Reason for Consult: PVD, hematoma Call Completed: Yes 01/27/17 07:21 Consult to Interventional Radiology [CONS] Routine Consulting Provider: Radiology Interventional Cols Reason for Consult: Lt leg hematoma Call Completed: Yes 01/27/17 10:25 Consult to Podiatry [CONS] Routine Consulting Provider: [facility] Reason for Consult: S/P toe amputation B/L Call Completed: Yes 01/28/17 08:14 Consult to Occupational Therapy [CONS] Routine Comment: Evaluate, develop and implement POC Reason for Consult: Right thigh hematoma s/p fall Consult to Physical Therapy [CONS] Routine Comment: Evaluate, develop and implement POC Reason for Consult: Right thigh hematoma s/p fall 01/28/17 15:19 Consult to Contract [employer] [CONS] Routine Reason for SW Consult: possible need for ECF. very weak on feet and can barely stand or even take a few steps. here for alcohol withdrawal. Discharging clinician: Nica Pearce Anticipated date of discharge: 01/30/17 - Patient Status Disposition: Transfer Hospital Swing Bed Condition: Fair Functional capacity at discharge: uses cane/walker Overall status at discharge: patient is progressing back to baseline - Discharge Instructions Instructions: Anemia (DC) Follow Up With: Herbert Guajardo MD [Partnered Physician] - 03/04/17 3:30 pm Randy Tse MD [Primary Care Provider] - 02/06/17 11:00 am Additional Instructions: F/up with Hematology in 3-4 weeks - Diet and Activity Activity: as per physical therapy Diet: low fat, low cholesterol, low salt diet Hospital course: Mr. Pichadro is a 66 year old male with the above medical problems, who was admitted from rehab facility with c/o- right thigh pain and swelling. He was noted to have right thigh hematoma and acute on chronic blood loss anemia, which responded to PRBC transfusion. He was noted to be on anticoagulation with Coumadin for remote PE and INR improved with FFPs and Vit K. Orthopedics and vascular surgery were consulted; bedside needle aspiration of the hematoma has been unsuccessfully attempted. Interventional radiology recommended continued monitoring/waiting until hematoma liquefies. Hematology was consulted and recommend to discontinue anticoagulation as he completed 6months of AC for provoked VTE; CTA chest in the hospital remained negative for PE. PT/OT evaluation was completed and patient is being discharged to inpatient rehab in stable condition. He has B/L toe amputations done at recently and Podiatry recommended outpatient wound care and f/up; no e/o- osteomyelitis per notes. - Time Spent with Patient Total time spent providing and/or coordinating discharge services: Greater than 30 minutes (45 min) - Constitutional Vitals: Temp Pulse Resp BP Pulse Ox 97.9 F 101 16 154/91 95 01/30/17 11:18 01/30/17 11:57 01/30/17 11:18 01/30/17 11:57 01/30/17 11:18 General appearance: Present: A&O X 3, answers questions appropriately - Extremities Exam Extremities exam: Present: warm, radial pulses palpable and symmetrical. Absent : calf tenderness, cyanotic, pedal edema Additional comments: right thigh with diffuse swelling over anterior mid thigh, tender and firm - VTE Documentation of Mechanical Device: Intermittent pneumatic compression device
--- NOTE | 2017-01-30 12:57 | Physician Discharge Referral ---
ExtendedCare Referral Info [facility] Provider in Charge: Nica Pearce Provider in Charge after Transfer: PCP Institutional Level of Care: Intermediate - Diagnosis (1) Thigh hematoma Priority: Primary Status: Acute (2) Osteomyelitis Priority: Primary Status: Ruled-out (3) CKD (chronic kidney disease) Priority: Secondary Status: Chronic (4) Anemia Priority: Primary Status: Acute (5) Lupus Priority: Secondary Status: Chronic (6) Pulmonary embolism Priority: Secondary Status: Inactive (7) PVD (peripheral vascular disease) Priority: Secondary Status: Chronic (8) Warfarin-induced coagulopathy Priority: Primary Status: Resolved (9) HTN (hypertension) Priority: Secondary Status: Chronic Expected Duration of Placement: 3 weeks Prognosis: Good Aware of Diagnosis: Patient Aware of Prognosis: Patient - Transfer Medications Prescriptions: OxyCODONE/APAP 5/325 [Percocet 5/325 MG] 1 each PO Q6HR PRN #15 tablet PRN Reason: Pain Home Medications: Acetaminophen [Tylenol] 650 mg PO Q6HR PRN 05/15/16 [History] Ascorbic Acid [C-1000] 1,000 mg PO DAILY 05/15/16 [History] Calcitriol [Rocaltrol] 0.25 mcg PO HS 05/15/16 [History] Cyclobenzaprine [Flexeril] 5 mg PO TID PRN 05/15/16 [History] Ferrous Sulfate [Iron] 325 mg PO BIDWM 05/15/16 [History] Hydroxychloroquine [Plaquenuil] 200 mg PO BID 05/15/16 [History] Paroxetine HCl [Paxil] 20 mg PO DAILY 05/15/16 [History] Sennosides/Docusate Sodium [Senna-S Tablet] 1 tab PO HS 05/15/16 [History] methylPREDNISolone [Medrol] 4 mg PO BID 05/15/16 [History] Pantoprazole Sodium [Protonix] 40 mg PO DAILY 01/17/17 [History] Alendronate Sodium 70 mg PO QWEEK 01/25/17 [History] Celecoxib [Celebrex] 200 mg PO BID 01/25/17 [History] LORazepam [Ativan] 0.5 mg PO BID 01/25/17 [History] Metoprolol XL (24 HR) Succ [Toprol Xl] 50 mg PO DAILY tab.er.24h 01/30/17 [Rx] OxyCODONE/APAP 5/325 [Percocet 5/325 MG] 1 each PO Q6HR PRN #15 tablet 01/30/17 [Rx] amLODIPine [Norvasc] 10 mg PO DAILY tablet 01/30/17 [Rx] Allergies/Adverse Reactions: 3 Allergy/AdvReac Type Severity Reaction Status Date / Time carvedilol [From Coreg] Allergy Gastrointestinal Verified 01/17/17 01:17 Upset diphenhydramine Allergy Chills Verified 01/17/17 01:17 [From Benadryl] - Respiratory Orders Smoking Cessation: Smoking cessation has been advised. For more information, call the [place] Tobacco Quit Line at 7-610-OTYQ-NOW. - Advance Directives Code Status: Full Code - Mobility Orders Ambulate - Rehabiliation Orders Rehab Potential: Good Rehab Orders: ROM Exercises, Evaluation for Physical Therapy, Evaluation for Occupational Therapy - Diet Orders No Added Salt (DORCAS), Cardiac CERTIFICATION: I certify that the transfer of the above named patient to an Extended Care Facility is necessary for the continuing treatment of the diagnosis listed. The above information is true and accurate reflection of patient's current condition. Confidential - Redisclosure prohibited without a patient's written consent.
[2017-01-30 14:33] VITALS: BP 150/89
== END 2017-01-30 15:07 | disposition other institution (70) | DRG 605 ==
LOC: 3ANU 17:43 → SUATTDRO 17:43
PROVIDERS: ADMIT Hospitalist; ATTEND Internal Medicine